=== PATIENT | male | born 1965 | race Caucasian/White ===

== ENCOUNTER 2021-08-22 10:16 | Inpatient (IN) ==
[2021-08-22 11:50] LABS: Basophils # (auto) 0.03 K/uL (0-0.2); Basophils % (auto) 0.3 %; Eosinophils # (auto) 0.12 K/uL (0-0.5); Eosinophils % (auto) 1.2 %; Hematocrit (blood only) 41.2 % (42-52); Hemoglobin 14.7 g/dL (14.0-18.0); Immature Granulocytes # (auto) 0.04 K/uL (0.00-0.02); Immature Granulocytes % (auto) 0.4 %; Lymphocytes # (auto) 1.26 K/uL (1.2-3.4); Lymphocytes % (auto) 12.9 %; Mean Corpuscular Hemoglobin 30.6 pg (25-34); Mean Corpuscular Hgb Conc 35.7 g/dL (32-36); Mean Corpuscular Volume 85.7 fL (80-100); Mean Platelet Volume 8.9 fL (7.4-10.4); Monocytes # (auto) 0.45 K/uL (0.11-0.59); Monocytes % (auto) 4.6 %; Neutrophils # (auto) 7.85 K/uL (1.4-6.5); Neutrophils % (auto) 80.6 %; Platelet Count 190 K/uL (130-400); RDW Coefficient of Variation 12.9 % (11.5-14.5); RDW Standard Deviation 40.3 fL (36.4-46.3); Red Blood Count 4.81 M/uL (4.7-6.1); White Blood Count 9.75 K/uL (4.8-10.8)
--- NOTE | 2021-08-22 12:04 | Emergency Department Note ---
Impression & Plan Abscess of anal or rectal region, Acute hyponatremia, Acute hyperglycemia ED Provider Note NAME: SANTIAGO [id number] GEIB AGE: 56 SEX: M : 1965 ARRIVES VIA: Walk-In INFORMANT: Patient ED PROVIDER(S): Chase Crenshaw DO CHIEF COMPLAINT: Rectal pain HPI: Patient is a 56-year-old male who presents the ER for rectal pain. This has been present for the past week and getting worse. He describes it as a 7-10 out of 10. He denies any belly pain, nausea, vomiting, or diarrhea. No dysuria, urgency, or frequency. He is never had this before. He was seen at the [facility] and referred over for possible abscess. They placed him on antibiotics in the past 24 hours. He denies any other exacerbating or remitting factors other than it is worse with pressure. ROS: See above HPI for pertinent positives & negatives. A total of 10 systems reviewed and were otherwise negative. PAST MEDICAL HISTORY:See Below PAST SURGICAL HISTORY:See Below FAMILY HISTORY:See Below SOCIAL HISTORY:See Below HOME MEDICATIONS:See Below ALLERGIES:See Below VITALS:See Below PHYSICAL EXAMINATION: GENERAL: Sitting up in bed, alert, well appearing, well nourished, no distress, non-toxic EYE EXAM: normal conjunctiva. PERRL and EOM's grossly intact. OROPHARYNX: no exudate, no erythema, lips, buccal mucosa, and tongue normal and mucous membranes are moist NECK: supple, no nuchal rigidity, no adenopathy, non-tender LUNGS: Clear to auscultation. Normal chest wall mechanics HEART: no murmurs, S1 normal and S2 normal ABDOMEN: abdomen soft, non-tender, normo-active bowel sounds, no masses, no rebound or guarding. RECTAL: Firm fluctuant abscess at 7 o'clock position tracking to the anus with fluctuance and small amount of green purulent discharge UPPER EXTREMITIES: upper extremities are grossly normal. LOWER EXTREMITIES: No pitting edema. NEURO EXAM: Normal sensorium, cranial nerves II-XII grossly intact, normal speech, no gross weakness of arms, no gross weakness of legs. MEDICAL DECISION MAKING: Patient is a 56-year-old male who presents ER for rectal pain. On exam he appears to have a perianal abscess. IV was established blood work is obtained. Labs show no significant leukocytosis or anemia. BMP with mild hyponatremia at 133. Glucose was slightly elevated at 290. LFTs bilirubin was unremarkable. Lipase was normal. Covid negative. CT abdomen pelvis supports an abscess with surrounding cellulitis. He was discussed with general surgery and they took him to the OR for washout.Patient was updated bedside.He was given IV Zosyn while in the ER. Triage Nursing notes reviewed. Limited review of prior medical records performed Vital Signs: reviewed and remarkable for no significant abnormalities Differential diagnosis: Differential diagnoses includes but is not limited to gastritis, peptic ulcer disease, GERD, gallbladder disease, pancreatitis, small bowel obstruction, acute coronary syndrome, pericarditis, ischemic bowel, irritable bowel disease, irritable bowel syndrome, appendicitis, diverticulitis, malignancy, hernia, urinary tract infection, torsion, perforation, trauma, infectious. ER treatment provided: See below Diagnostics interpreted by me: ECG: none Cardiac Monitoring: An order was placed for continuous cardiac monitoring. The monitor shows a rate of 60 with sinus rhythm. Laboratory studies: As stated above and show below. Imaging studies: CT shows perianal abscess Consultation(s): Discussed with general surgery for further evaluation Procedures: none Critical Care: None Past Med/Surg History Medical History (Updated 08/22/21 @ 17:36 by Chase Crenshaw DO) Diabetes mellitus Dyslipidemia Hypertension Social History Smoking Status: Former smoker Feels Safe at Home: Yes Allergies Allergies Allergy/AdvReac Type Severity Reaction Status Date / Time mushroom Allergy Unknown Unverified 08/22/21 11:27 Home Meds Home Medications Medication Instructions Recorded Confirmed aspirin 81 mg chewable tablet 81 mg PO DAILY 08/22/21 08/22/21 atorvastatin 10 mg tablet 10 mg PO HS 08/22/21 08/22/21 glyburide 5 mg tablet 10 mg PO BID 08/22/21 08/22/21 ibuprofen 200 mg tablet 600 mg PO Q6H PRN 08/22/21 08/22/21 insulin regular human 100 unit/mL 1 sliding scale dose SUBCUT 08/22/21 08/22/21 (3 mL) subcutaneous pen (Novolin R USEASDIRECTD Flexpen) lisinopril 2.5 mg tablet 2.5 mg PO DAILY 08/22/21 08/22/21 metformin 1,000 mg tablet 1,000 mg PO BID 08/22/21 08/22/21 sulfamethoxazole 800 1 tab PO BID 08/22/21 08/22/21 mg-trimethoprim 160 mg tablet Results & Data (ED) Vital Signs Vital Signs - 24 hr 08/22/21 10:31 08/22/21 11:37 08/22/21 12:39 Temperature 36.5 C Temperature Source Skin Pulse Rate 74 66 63 Pulse Rate [Apical] Pulse Rate from SpO2 Sensor 63 Pulse Rhythm [Apical] Pulse Strength [Apical] Respiratory Rate 18 14 21 Respiratory Effort / Characteristics Respiratory Depth Respiratory Pattern Blood Pressure 130/89 Blood Pressure [Left Arm] Blood Pressure Mean 102 Blood Pressure Mean [Left Arm] Blood Pressure Position [Left Arm] Pulse Oximetry 97 98 96 Oxygen Delivery Method Room Air Room Air Oxygen Flow Rate Sepsis Recent Fever Within 48 Hours No Sepsis New/Unexplained Change in Mental Status No Sepsis Action Taken by Nursing No Action Required 08/22/21 13:03 08/22/21 13:30 08/22/21 14:00 Temperature Temperature Source Pulse Rate 66 66 69 Pulse Rate [Apical] Pulse Rate from SpO2 Sensor 65 65 68 Pulse Rhythm [Apical] Pulse Strength [Apical] Respiratory Rate 14 23 12 Respiratory Effort / Characteristics Respiratory Depth Respiratory Pattern Blood Pressure 141/75 H Blood Pressure [Left Arm] Blood Pressure Mean 97 Blood Pressure Mean [Left Arm] Blood Pressure Position [Left Arm] Pulse Oximetry 99 98 98 Oxygen Delivery Method Oxygen Flow Rate Sepsis Recent Fever Within 48 Hours Sepsis New/Unexplained Change in Mental Status Sepsis Action Taken by Nursing 08/22/21 14:30 08/22/21 15:00 08/22/21 15:27 Temperature 36.8 C Temperature Source Oral Pulse Rate 65 63 Pulse Rate [Apical] Pulse Rate from SpO2 Sensor 65 64 Pulse Rhythm [Apical] Pulse Strength [Apical] Respiratory Rate 24 21 18 Respiratory Effort / Characteristics Non-Labored Respiratory Depth Normal Respiratory Pattern Regular Blood Pressure Blood Pressure [Left Arm] 148/80 H Blood Pressure Mean Blood Pressure Mean [Left Arm] 102 Blood Pressure Position [Left Arm] Lying Pulse Oximetry 97 96 98 Oxygen Delivery Method Room Air Oxygen Flow Rate Sepsis Recent Fever Within 48 Hours Sepsis New/Unexplained Change in Mental Status Sepsis Action Taken by Nursing 08/22/21 16:39 08/22/21 16:45 08/22/21 16:55 Temperature 36.2 C L Temperature Source Temporal Artery Scan Pulse Rate Pulse Rate [Apical] 73 71 62 Pulse Rate from SpO2 Sensor Pulse Rhythm [Apical] Regular Regular Regular Pulse Strength [Apical] Normal Normal Normal Respiratory Rate 12 19 21 Respiratory Effort / Characteristics Non-Labored Spontaneous Non-Labored Spontaneous Non-Labored Spontaneous Respiratory Depth Normal Normal Normal Respiratory Pattern Regular Regular Regular Blood Pressure Blood Pressure [Left Arm] 162/77 H 150/82 H 133/81 Blood Pressure Mean Blood Pressure Mean [Left Arm] 105 104 98 Blood Pressure Position [Left Arm] Lying Lying Lying Pulse Oximetry 96 98 97 Oxygen Delivery Method Oxymask Oxymask Oxymask Oxygen Flow Rate 6 6 6 Sepsis Recent Fever Within 48 Hours Sepsis New/Unexplained Change in Mental Status Sepsis Action Taken by Nursing 08/22/21 17:05 08/22/21 17:15 08/22/21 17:30 Temperature 36.3 C L Temperature Source Temporal Artery Scan Pulse Rate Pulse Rate [Apical] 59 L 59 L 58 L Pulse Rate from SpO2 Sensor Pulse Rhythm [Apical] Regular Regular Regular Pulse Strength [Apical] Normal Normal Normal Respiratory Rate 17 16 12 Respiratory Effort / Characteristics Non-Labored Spontaneous Non-Labored Spontaneous Non-Labored Spontaneous Respiratory Depth Normal Normal Normal Respiratory Pattern Regular Regular Regular Blood Pressure Blood Pressure [Left Arm] 126/75 119/69 110/68 Blood Pressure Mean Blood Pressure Mean [Left Arm] 92 85 82 Blood Pressure Position [Left Arm] Lying Lying Lying Pulse Oximetry 95 95 94 Oxygen Delivery Method Room Air Room Air Room Air Oxygen Flow Rate Sepsis Recent Fever Within 48 Hours Sepsis New/Unexplained Change in Mental Status Sepsis Action Taken by Nursing Laboratory Data Result diagrams: 08/22/21 11:40 08/22/21 11:40 Lab Results 08/22/21 08/22/21 08/22/21 Range/Units 11:40 11:40 14:25 WBC 9.75 (4.8-10.8) K/uL RBC 4.81 (4.7-6.1) M/uL Hgb 14.7 (14.0-18.0) g/dL Hct 41.2 L (42-52) % MCV 85.7 (80-100) fL MCH 30.6 (25-34) pg MCHC 35.7 (32-36) g/dL RDW Std Deviation 40.3 (36.4-46.3) fL RDW Coeff of Anh 12.9 (11.5-14.5) % Plt Count 190 (130-400) K/uL MPV 8.9 (7.4-10.4) fL Immature Gran % (Auto) 0.4 % Neut % (Auto) 80.6 % Lymph % (Auto) 12.9 % Preston % (Auto) 4.6 % Eos % (Auto) 1.2 % Baso % (Auto) 0.3 % Neut # (Auto) 7.85 H (1.4-6.5) K/uL Lymph # (Auto) 1.26 (1.2-3.4) K/uL Preston # (Auto) 0.45 (0.11-0.59) K/uL Eos # (Auto) 0.12 (0-0.5) K/uL Baso # (Auto) 0.03 (0-0.2) K/uL Immature Gran # (Auto) 0.04 H (0.00-0.02) K/uL Sodium 133 L (136-145) mmol/L Potassium 4.3 (3.5-5.1) mmol/L Chloride 102 (98-107) mmol/L Carbon Dioxide 23 (21-32) mmol/L Anion Gap 8.0 (3-11) BUN 17 (7-18) mg/dl Creatinine 1.07 (0.6-1.4) mg/dl Est Cr Clr Drug Dosing 82.7 ml/min Est GFR ( Amer) 88.8 ml/min Est GFR (Non-Af Amer) 76.7 ml/min BUN/Creatinine Ratio 15.9 (10-20) Glucose 298 H (70-99) mg/dl POC Glucose (70-99) mg/dl Calcium 9.7 (8.5-10.1) mg/dl Total Bilirubin 0.6 (0.2-1) mg/dl AST 10 L (15-37) U/L ALT 16 (12-78) U/L Alkaline Phosphatase 115 (45-117) U/L Total Protein 8.3 H (6.4-8.2) gm/dl Albumin 3.5 (3.4-5.0) gm/dl Globulin 4.8 H (2.5-4.0) gm/dl Albumin/Globulin Ratio 0.7 L (0.9-2) Lipase 57 L (73-393) U/L COVID-19 Eval Order Covid19 at [facility] SARS-CoV-2 (PCR) (Negative) 08/22/21 08/22/21 Range/Units 14:25 16:41 WBC (4.8-10.8) K/uL RBC (4.7-6.1) M/uL Hgb (14.0-18.0) g/dL Hct (42-52) % MCV (80-100) fL MCH (25-34) pg MCHC (32-36) g/dL RDW Std Deviation (36.4-46.3) fL RDW Coeff of Anh (11.5-14.5) % Plt Count (130-400) K/uL MPV (7.4-10.4) fL Immature Gran % (Auto) % Neut % (Auto) % Lymph % (Auto) % Preston % (Auto) % Eos % (Auto) % Baso % (Auto) % Neut # (Auto) (1.4-6.5) K/uL Lymph # (Auto) (1.2-3.4) K/uL Preston # (Auto) (0.11-0.59) K/uL Eos # (Auto) (0-0.5) K/uL Baso # (Auto) (0-0.2) K/uL Immature Gran # (Auto) (0.00-0.02) K/uL Sodium (136-145) mmol/L Potassium (3.5-5.1) mmol/L Chloride (98-107) mmol/L Carbon Dioxide (21-32) mmol/L Anion Gap (3-11) BUN (7-18) mg/dl Creatinine (0.6-1.4) mg/dl Est Cr Clr Drug Dosing ml/min Est GFR ( Amer) ml/min Est GFR (Non-Af Amer) ml/min BUN/Creatinine Ratio (10-20) Glucose (70-99) mg/dl POC Glucose 255 H (70-99) mg/dl Calcium (8.5-10.1) mg/dl Total Bilirubin (0.2-1) mg/dl AST (15-37) U/L ALT (12-78) U/L Alkaline Phosphatase (45-117) U/L Total Protein (6.4-8.2) gm/dl Albumin (3.4-5.0) gm/dl Globulin (2.5-4.0) gm/dl Albumin/Globulin Ratio (0.9-2) Lipase (73-393) U/L COVID-19 Eval Order SARS-CoV-2 (PCR) NEGATIVE (Negative) Administered Medications Discontinued Medications Bacitracin (Bacitracin Oint 15 Gm Tube) Confirm Administered Dose 45 appln .ROUTE .STK-MED ONE Stop: 08/22/21 16:25 Last Admin: 08/22/21 16:27 Dose: 1 appln Documented by: [id number] Piperacillin Sod/Tazobactam (Sod 3.375 gm/ Dextrose) 100 ml in 115 mls @ 230 mls/hr IV NOW STA Stop: 08/22/21 15:28 Last Infusion: 08/22/21 15:40 Dose: 0 mls/hr Documented by: [id number] Admin: 08/22/21 15:07 Dose: 230 mls/hr Documented by: [id number] Ioversol (Optiray 320 100ml) 95 ml IV ONCE ONE Stop: 08/22/21 13:04 Last Admin: 08/22/21 12:57 Dose: 95 ml Documented by: [id number] Imaging Data Radiologist's Impression: Abdomen/Pelvis CT 08/22/21 12:02 CT SCAN OF THE ABDOMEN AND PELVIS WITH IV CONTRAST CLINICAL HISTORY: Perianal abscess COMPARISON STUDY: No priors. TECHNIQUE: Following the IV administration of 95 cc of Optiray 320, CT scan of the abdomen and pelvis is performed from the lung bases to the proximal femora. Images are reviewed in the axial, sagittal, and coronal planes. IV contrast was administered without complication. A dose lowering technique was utilized adhering to the principles of ALARA. CT DOSE: 357.78 mGy.cm FINDINGS: Lung bases: The heart is normal in size and without pericardial effusion. The lung bases are clear noting mild bibasilar scarring/atelectasis. Liver: The contrast-enhanced liver is normal in size, contour, and attenuation. There is no intrahepatic biliary ductal dilatation. The hepatic veins and portal veins are patent. Gallbladder: Unremarkable. Spleen: The spleen is mildly enlarged measuring up to 13.8 cm in length. Pancreas: Unremarkable. Adrenal glands: Unremarkable. Kidneys: The contrast enhanced kidneys are normal in size and without hydronephrosis. The kidneys enhance symmetrically. Abdominal vasculature: The abdominal aorta is normal in course and caliber noting moderate to advanced atherosclerotic calcification. 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 Bowel: There is moderate colonic fecal retention. No bowel obstruction is seen. The appendix is well-visualized and normal. Peritoneum: There is no intraperitoneal free air or abdominal ascites. There is a fat-containing umbilical hernia. Lymphadenopathy: None. Pelvic viscera: The prostate gland is enlarged and heterogeneous noting median lobe hypertrophy. The bladder is distended, and the wall is thickened/trabeculated indicating chronic outlet obstruction. Skeletal structures: No lytic or blastic lesions are seen. Soft tissues: There is inflammatory process in the medial right buttock along the gluteal crease. This is best seen on axial image #40 and 69. There is a multiloculated and peripherally enhancing fluid collection at this site which measures approximately 2 x 3.5 x 2 cm in aggregate dimension. This is located below the anus, with no clear perianal involvement. There is no definite e vidence of fistula. IMPRESSION: 1. There is an inflammatory process in the medial right buttock along the gluteal crease consistent with cellulitis and abscess. 2. There is no clear involvement of the perianal soft tissues, and no clear evidence of fistula. 3. Mild splenomegaly. 4. 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 5. Additional findings as above. ACT 112: Negative or not required by law. Electronically signed by: Gilberto Sanchez M.D. 08/22/2021 1:23 PM Discharge Plan Visit Data Chief Complaint: Skin Problem Stated Complaint: NIKKI-RECTAL ABSCESS ED Provider: Chase Crenshaw Discharge Problem: Abscess of anal or rectal region, Acute hyponatremia, Acute hyperglycemia
[2021-08-22 12:07] LABS: Albumin Level 3.5 gm/dl (3.4-5.0); BUN Creatinine Ratio 15.9 (10-20); Calcium 9.7 mg/dl (8.5-10.1); Creatinine Clr Calc Pharmacy 82.7 ml/min; Est GFR (African American) 88.8 ml/min; Est GFR (Non-African American) 76.7 ml/min; Potassium 4.3 mmol/L (3.5-5.1)
[2021-08-22 12:09] LABS: Albumin Globulin Ratio 0.7 (0.9-2); Bilirubin,Total 0.6 mg/dl (0.2-1); Globulin 4.8 gm/dl (2.5-4.0); Total Protein 8.3 gm/dl (6.4-8.2)
[2021-08-22] MEDS ORDERED: OPTIRAY 320 100ml IV ONE (13:03)
--- NOTE | 2021-08-22 13:25 | CT Scan Report ---
CT SCAN OF THE ABDOMEN AND PELVIS WITH IV CONTRAST CLINICAL HISTORY: Perianal abscess COMPARISON STUDY: No priors. TECHNIQUE: Following the IV administration of 95 cc of Optiray 320, CT scan of the abdomen and pelvi s is performed from the lung bases to the proximal femora. Images are reviewed in the axial, sagittal , and coronal planes. IV contrast was administered without complication. A dose lowering technique wa s utilized adhering to the principles of ALARA. CT DOSE: 357.78 mGy.cm FINDINGS: Lung bases: The heart is normal in size and without pericardial effusion. The lung bases are clear no ting mild bibasilar scarring/atelectasis. Liver: The contrast-enhanced liver is normal in size, contour, and attenuation. There is no intrahepa tic biliary ductal dilatation. The hepatic veins and portal veins are patent. Gallbladder: Unremarkable. Spleen: The spleen is mildly enlarged measuring up to 13.8 cm in length. Pancreas: Unremarkable. Adrenal glands: Unremarkable. Kidneys: The contrast enhanced kidneys are normal in size and without hydronephrosis. The kidneys enh ance symmetrically. Abdominal vasculature: The abdominal aorta is normal in course and caliber noting moderate to advance d atherosclerotic calcification. There is at least moderate stenosis of the right external iliac narayan ry. Bowel: There is moderate colonic fecal retention. No bowel obstruction is seen. The appendix is well -visualized and normal. Peritoneum: There is no intraperitoneal free air or abdominal ascites. There is a fat-containing umbi lical hernia. Lymphadenopathy: None. Pelvic viscera: The prostate gland is enlarged and heterogeneous noting median lobe hypertrophy. The bladder is distended, and the wall is thickened/trabeculated indicating chronic outlet obstruction. Skeletal structures: No lytic or blastic lesions are seen. Soft tissues: There is inflammatory process in the medial right buttock along the gluteal crease. Thi s is best seen on axial image #40 and 69. There is a multiloculated and peripherally enhancing fluid collection at this site which measures approximately 2 x 3.5 x 2 cm in aggregate dimension. This is l ocated below the anus, with no clear perianal involvement. There is no definite evidence of fistula. IMPRESSION: 1. There is an inflammatory process in the medial right buttock along the gluteal crease consistent w ith cellulitis and abscess. 2. There is no clear involvement of the perianal soft tissues, and no clear evidence of fistula. 3. Mild splenomegaly. 4. 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 5. Additional findings as above. ACT 112: Negative or not required by law. Electronically signed by: Gilberto Sanchez M.D. 08/22/2021 1:23 PM
[2021-08-22] MEDS ORDERED: PIPERACILL/TAZOBAC CONSULT ACTIVE PRN ×3 (14:07→18:04)
[2021-08-22] MEDS ORDERED: PIPERACILLIN/TAZOBACTAM 4.5 GM/120ML D5W IV ONE (14:11)
[2021-08-22] MEDS ORDERED: PIPERACILLIN/TAZOBACTAM 3.375 GM in DEXTROSE 5% 100 ML/100 ML BAG IV STA (14:59)
[2021-08-22] MEDS ORDERED: PIPERACILLIN/TAZOBACTAM 4.5 GM/120 ML BAG IV ONE (15:29)
--- NOTE | 2021-08-22 15:47 | Surgery Consultation ---
Date of Consultation August 22, 2021 Assessment & Plan (1) Abscess of anal or rectal region: pt is a 56 year-old male who presents with rectal pain for 1 week, CT scan- diagnosis- perirectal abscess IMP: perirectal abscess, Plan, I recommend to do I/D perirectal abscess, D/w benefits, risks and alternatives of the surgery, the risks - infection, bleeding, recurrence, fistula, may need more surgery, pt understood, he agrees with the surgery, he signed informed consent, I answered all questions,pre-op antibiotic History of Present Illness Reason for Consultation: perirectal abscess Requesting Physician: Dr. Chase Crenshaw History of Present Illness CHIEF COMPLAINT: Rectal pain HPI: Patient is a 56-year-old male who presents the ER for rectal pain. This been present for the past week and getting worse. He describes it as a 7-10 out of 10. He denies any belly pain nausea vomiting or diarrhea. No dysuria urgency or frequency. He is never had this before. He was seen at the long term and referred over for possible abscess. They placed him on antibiotics in the past 24 hours. He denies any other exacerbating or remitting factors other than it is worse with pressure. I ( Primitivo Collins MD ) got a call for consult perirectal abscess, I reviewed pt's H/P, labs, CT scan with pt, ROS: See above HPI for pertinent positives & negatives. A total of 10 systems reviewed and were otherwise negative. PAST MEDICAL HISTORY:See Below PAST SURGICAL HISTORY:See Below FAMILY HISTORY:See Below SOCIAL HISTORY:See Below HOME MEDICATIONS:See Below ALLERGIES:See Below Past Med/Surg History Social History Smoking Status: Former smoker Feels Safe at Home: Yes Allergies Allergies Allergy/AdvReac Type Severity Reaction Status Date / Time mushroom Allergy Unknown Unverified 08/22/21 11:27 Home Meds Home Medications Medication Instructions Recorded Confirmed aspirin 81 mg chewable tablet 81 mg PO DAILY 08/22/21 08/22/21 atorvastatin 10 mg tablet 10 mg PO HS 08/22/21 08/22/21 glyburide 5 mg tablet 10 mg PO BID 08/22/21 08/22/21 ibuprofen 200 mg tablet 600 mg PO Q6H PRN 08/22/21 08/22/21 insulin regular human 100 unit/mL 1 sliding scale dose SUBCUT 08/22/21 08/22/21 (3 mL) subcutaneous pen (Novolin R USEAS DIRECTD Flexpen) lisinopril 2.5 mg tablet 2.5 mg PO DAILY 08/22/21 08/22/21 metformin 1,000 mg tablet 1,000 mg PO BID 08/22/21 08/22/21 sulfamethoxazole 800 1 tab PO BID 08/22/21 08/22/21 F mg-trimethoprim 160 mg tablet Results & Data (ED) Vital Signs Vital Signs - 24 hr 08/22/21 10:31 08/22/21 11:37 Temperature 36.5 C Temperature Source Skin Pulse Rate 74 66 Respiratory Rate 18 14 Blood Pressure 130/89 Blood Pressure Mean 102 Pulse Oximetry 97 98 Oxygen Delivery Method Room Air Room Air Sepsis Recent Fever Within 48 Hours No Sepsis New/Unexplained Change in Mental Status No Sepsis Action Taken by Nursing No Action Required Laboratory Data Result diagrams: 08/22/21 11:40 08/22/21 11:40 Lab Results 08/22/21 Range/Units 11:40 WBC 9.75 (4.8-10.8) K/uL RBC 4.81 (4.7-6.1) M/uL Hgb 14.7 (14.0-18.0) g/dL Hct 41.2 L (42-52) % MCV 85.7 (80-100) fL MCH 30.6 (25-34) pg MCHC 35.7 (32-36) g/dL RDW Std Deviation 40.3 (36.4-46.3) fL RDW Coeff of Anh 12.9 (11.5-14.5) % Plt Count 190 (130-400) K/uL MPV 8.9 (7.4-10.4) fL Immature Gran % (Auto) 0.4 % Neut % (Auto) 80.6 % Lymph % (Auto) 12.9 % Reeves % (Auto) 4.6 % Eos % (Auto) 1.2 % Baso % (Auto) 0.3 % Neut # (Auto) 7.85 H (1.4-6.5) K/uL Lymph # (Auto) 1.26 (1.2-3.4) K/uL Reeves # (Auto) 0.45 (0.11-0.59) K/uL Eos # (Auto) 0.12 (0-0.5) K/uL Baso # (Auto) 0.03 (0-0.2) K/uL Immature Gran # (Auto) 0.04 H (0.00-0.02) K/uL Allergies Allergy/AdvReac Type Severity Reaction Status Date / Time mushroom Allergy Unknown Unverified 08/22/21 11:27 Home Medications Medication Instructions Recorded Confirmed Type aspirin 81 mg chewable tablet 81 mg PO DAILY 08/22/21 08/22/21 History atorvastatin 10 mg tablet 10 mg PO HS 08/22/21 08/22/21 History glyburide 5 mg tablet 10 mg PO BID 08/22/21 08/22/21 History ibuprofen 200 mg tablet 600 mg PO Q6H PRN 08/22/21 08/22/21 History insulin regular human 100 unit/mL 1 sliding scale dose SUBCUT 08/22/21 08/22/21 History (3 mL) subcutaneous pen (Novolin R USEASDIRECTD Flexpen) lisinopril 2.5 mg tablet 2.5 mg PO DAILY 08/22/21 08/22/21 History metformin 1,000 mg tablet 1,000 mg PO BID 08/22/21 08/22/21 History sulfamethoxazole 800 1 tab PO BID 08/22/21 08/22/21 History mg-trimethoprim 160 mg tablet Patient History Medical History (Updated 08/22/21 @ 15:49 by Primitivo Collins MD) Diabetes mellitus Dyslipidemia Hypertension Social History Smoking Status: Former smoker Feels Safe at Home: Yes Review of Systems Constitutional: as per Subjective / HPI Eyes: as per Subjective / HPI Respiratory: as per Subjective / HPI Cardiovascular: Additional Comments: HTN, hyperlipidemia Gastrointestinal: as per Subjective / HPI Genitourinary: + as per Subjective / HPI Musculoskeletal: as per Subjective / HPI Integumentary: as per Subjective / HPI Neurologic: as per Subjective / HPI Psychiatric: as per Subjective / HPI Endocrine: DM Hematologic / Lymphatic: as per Subjective / HPI Physical Exam Constitutional: WD/WN, vitals as above Eyes: PERRL, conjunctivae normal, anicteric sclerae Neck: trachea midline, no thyromegaly Respiratory: normal respiratory effort, lungs clear to auscultation Cardiovascular: RRR, no murmur, no edema Gastrointestinal (Abdomen): normal bowel sounds, soft, nontender, no hepatosplenomegaly rectal exam: perirectal abscess at right side anal area, with redness, tenderness, Musculoskeletal: no cyanosis or clubbing, extremities motor strength 5/5 Neurologic: patellar DTR's 2+ bilat, sensation intact Psychiatric: A+Ox3, euthymic affect Results & Data ([facility]) Vital Signs (Past 12 Hours) Vital Signs Temp Pulse Resp BP BP Pulse Ox 08/22/21 15:27 36.8 C 18 148/80 H 98 08/22/21 15:00 63 21 96 08/22/21 14:30 65 24 97 08/22/21 14:00 69 12 98 08/22/21 13:30 66 23 98 08/22/21 13:03 66 14 141/75 H 99 08/22/21 12:39 63 21 96 08/22/21 11:37 66 14 98 08/22/21 10:31 36.5 C 74 18 130/89 97 Laboratory Results Abnormal lab results 08/22/21 08/22/21 Range/Units 11:40 11:40 Hct 41.2 L (42-52) % Neut # (Auto) 7.85 H (1.4-6.5) K/uL Immature Gran # (Auto) 0.04 H (0.00-0.02) K/uL Sodium 133 L (136-145) mmol/L Glucose 298 H (70-99) mg/dl AST 10 L (15-37) U/L Total Protein 8.3 H (6.4-8.2) gm/dl Globulin 4.8 H (2.5-4.0) gm/dl Albumin/Globulin Ratio 0.7 L (0.9-2) Lipase 57 L (73-393) U/L Diagnostic Findings CT SCAN OF THE ABDOMEN AND PELVIS WITH IV CONTRAST CLINICAL HISTORY: Perianal abscess COMPARISON STUDY: No priors. TECHNIQUE: Following the IV administration of 95 cc of Optiray 320, CT scan of the abdomen and pelvis is performed from the lung bases to the proximal femora. Images are reviewed in the axial, sagittal, and coronal planes. IV contrast was administered without complication. A dose lowering technique was utilized adhering to the principles of ALARA. CT DOSE: 357.78 mGy.cm FINDINGS: Lung bases: The heart is normal in size and without pericardial effusion. The lung bases are clear noting mild bibasilar scarring/atelectasis. Liver: The contrast-enhanced liver is normal in size, contour, and attenuation. There is no intrahepatic biliary ductal dilatation. The hepatic veins and portal veins are patent. Gallbladder: Unremarkable. Spleen: The spleen is mildly enlarged measuring up to 13.8 cm in length. Pancreas: Unremarkable. Adrenal glands: Unremarkable. Kidneys: The contrast enhanced kidneys are normal in size and without hydronephrosis. The kidneys enhance symmetrically. Abdominal vasculature: The abdominal aorta is normal in course and caliber noting moderate to advanced atherosclerotic calcification. 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 Bowel: There is moderate colonic fecal retention. No bowel obstruction is seen. The appendix is well-visualized and normal. Peritoneum: There is no intraperitoneal free air or abdominal ascites. There is a fat-containing umbilical hernia. Lymphadenopathy: None. Pelvic viscera: The prostate gland is enlarged and heterogeneous noting median lobe hypertrophy. The bladder is distended, and the wall is thickened/trabeculated indicating chronic outlet obstruction. Skeletal structures: No lytic or blastic lesions are seen. Soft tissues: There is inflammatory process in the medial right buttock along the gluteal crease. This is best seen on axial image #40 and 69. There is a multiloculated and peripherally enhancing fluid collection at this site which measures approximately 2 x 3.5 x 2 cm in aggregate dimension. This is located below the anus, with no clear perianal involvement. There is no definite evidence of fistula. IMPRESSION: 1. There is an inflammatory process in the medial right buttock along the gluteal crease consistent with cellulitis and abscess. 2. There is no clear involvement of the perianal soft tissues, and no clear evidence of fistula. 3. Mild splenomegaly. 4. 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 5. Additional findings as above.
[2021-08-22] MEDS ORDERED: fentaNYL citrate 100 MCG/2 ML VIAL ONE ×2 (15:50→16:21)
[2021-08-22] MEDS ORDERED: ONDANSETRON INJ 2 MG/ML 2 ML VIAL ONE (15:52)
[2021-08-22] MEDS ORDERED: ONDANSETRON INJ 2 MG/ML 2 ML VIAL IV PRN (15:52)
[2021-08-22] MEDS ORDERED: fentaNYL citrate 100 MCG/2 ML VIAL IV PRN (15:52)
[2021-08-22] MEDS ORDERED: HYDROmorphone INJ 2 MG/ML SYR/VIAL IV PRN (15:52)
[2021-08-22] MEDS ORDERED: ATROPINE SULFATE 0.1 MG/ML 10ML SYR IV PRN (15:52)
[2021-08-22] MEDS ORDERED: PROPOFOL IV EMULSION 10 MG/ML 20 ML VIAL IV ONE (15:52)
[2021-08-22] MEDS ORDERED: LIDOCAINE 2% 2 ML VIAL/AMP(20MG/ML) INFIL ONE (15:52)
[2021-08-22] MEDS ORDERED: ePHEDrine sulfate 50 MG/ML AMP IV PRN (15:52)
--- NOTE | 2021-08-22 15:52 | Anesthesiology Consultation ---
Date of Service August 22, 2021 Assessment & Plan ASA ASA3 Proposed Anesthesia Anesthesia Type: General Risk / Benefits Reviewed With: PT / POA / Parent / Guardian, Accepts Plan and Informed Consent Obtained History Surgery Operation Date: 08/22/21 17:20 Proposed Procedures p Incision and Drainage Gluteal Abscess - Primitivo Collins MD Height/Weight Height: 6 ft Weight: 76.8 kg Allergies Allergy/AdvReac Type Severity Reaction Status Date / Time mushroom Allergy Unknown Unverified 08/22/21 11:27 Medications Home Medications Medication Instructions Recorded Confirmed Last Taken aspirin 81 mg chewable tablet 81 mg PO DAILY 08/22/21 08/22/21 Unknown atorvastatin 10 mg tablet 10 mg PO HS 08/22/21 08/22/21 Unknown glyburide 5 mg tablet 10 mg PO BID 08/22/21 08/22/21 Unknown ibuprofen 200 mg tablet 600 mg PO Q6H PRN 08/22/21 08/22/21 Unknown insulin regular human 100 unit/mL 1 sliding scale dose SUBCUT 08/22/21 08/22/21 Unknown (3 mL) subcutaneous pen (Novolin R USEASDIRECTD Flexpen) lisinopril 2.5 mg tablet 2.5 mg PO DAILY 08/22/21 08/22/21 Unknown metformin 1,000 mg tablet 1,000 mg PO BID 08/22/21 08/22/21 Unknown sulfamethoxazole 800 1 tab PO BID 08/22/21 08/22/21 Unknown mg-trimethoprim 160 mg tablet NPO Date Last Intake of Fluids: 08/21/21 Time Last Intake of Fluids: 19:00 Date Last Intake of Solids: 08/22/21 Time Last Intake of Solids: 07:15 Past Medical History Medical History (Updated 08/22/21 @ 15:49 by Primitivo Collins MD) Diabetes mellitus Dyslipidemia Hypertension Exercise / Class Metabolic Activity II 4-5 Yardwork/Stairs/Walk up hill Past Anesthesia History No Hx of Anesthesia Complications and No Family Hx of Anesthesia Complications History of PONV No Hx of PONV and No Hx of Motion Sickness Social History Smoking Status: Former smoker Review of Systems denies fever/cough/ colds/ chest pain/ SOB/ RODGER denies RODGER Physical Exam Vital Signs Last Vital Signs Temp 36.8 C 08/22/21 15:27 Pulse 63 08/22/21 15:00 Resp 18 08/22/21 15:27 BP 148/80 H 08/22/21 15:27 Pulse Ox 98 08/22/21 15:27 ENMT Mouth: + edentulous; no TMJ abnormality and no dentition abnormality Thyromental Distance: > or= 3.5 Finger Breadths Mallampati Class: II Neck neck extension not limited Respiratory normal respiratory effort; no respiratory distress Auscultation: lungs clear to auscultation bilaterally Cardiovascular Rate/Rhythm: regular rate and regular rhythm Neurologic moves all extremities Psychiatric Orientation: alert and oriented x 3 Testing Laboratory Results 08/22/21 11:40 08/22/21 11:40
--- NOTE | 2021-08-22 15:54 | History & Physical Bridge Note ---
Date of Service August 22, 2021 History & Physical Bridge Note I have examined the patient, reviewed the History & Physical and in the interval since the performance of the History & Physical I have noted the following changes of clinical significance: no changes noted
[2021-08-22] MEDS ORDERED: BACITRACIN OINT 15 GM TUBE ONE (16:24)
--- NOTE | 2021-08-22 16:29 | Post Operative Brief Note ---
Immediate Post Op Note v1 Date of Surgery August 22, 2021 Pre & Post Diagnosis Operation Date: 08/22/21 17:20 Pre-Op Diagnosis: perirectal abscess Post-Op Diagnosis: perirectal abscess I identified the patient and participated in the time-out.: Yes Procedure Operation Date: 08/22/21 17:20 Actual Procedures p Incision and Drainage perirectal Abscess(Not Applicable) - Primitivo Collins MD Surgeon Primitivo Collins MD Ict Help Desk Technician medical or surgical instrument maker Estimated Blood Loss 5 Findings Consistent with Post-Op Diagnosis perirectal abscess Fluids 600ml Specimens wound culture Drains Patricio Drain (portion of patricio ) Complications none Disposition Accompanied Patient To Recovery: Yes
[2021-08-22] MEDS ORDERED: oxyCODONE/ACETAMINOPHEN 5mg/325mg TAB PO STA (16:37)
[2021-08-22] MEDS ORDERED: PHARMACY GLYCEMIC MGMT CONSULT PRN (17:24)
--- NOTE | 2021-08-22 17:28 | Anesthesiology Progress Note ---
Date of Service August 22, 2021 Anesthesia Post Procedure Vital Signs Vital Signs: Temp Pulse Pulse Resp BP BP Pulse Ox 08/22/21 17:15 36.3 C L 59 L 16 119/69 95 08/22/21 17:05 59 L 17 126/75 95 08/22/21 16:55 62 21 133/81 97 08/22/21 16:45 71 19 150/82 H 98 08/22/21 16:39 36.2 C L 73 12 162/77 H 96 08/22/21 15:27 36.8 C 18 148/80 H 98 08/22/21 15:00 63 21 96 08/22/21 14:30 65 24 97 08/22/21 14:00 69 12 98 08/22/21 13:30 66 23 98 08/22/21 13:03 66 14 141/75 H 99 08/22/21 12:39 63 21 96 08/22/21 11:37 66 14 98 08/22/21 10:31 36.5 C 74 18 130/89 97 Pain Intensity Rectal: Pain Intensity: 2 Transfer of Care Handoff Completed per policy Notes Mental Status: alert / awake / arousable Patient Amnestic to Procedure: Yes Nausea / Vomiting: adequately controlled Pain: adequately controlled Airway Patency, RR, SpO2: stable & adequate BP & HR: stable & adequate Hydration State: stable & adequate Anesthetic Complications: no major complications apparent and Pt Satisfied with anesthetic care Notes: The patient is awake and comfortable. Postop BSG was 255. Pharmacy was consulted to manage his hyperglycemia.
[2021-08-22] MEDS ORDERED: HYDROmorphone INJ 0.5 MG/0.5 ML SYR IV PRN (18:04)
[2021-08-22] MEDS ORDERED: NON-FORMULARY MEDICATION (Insulin Regular Human [Novolin R Flexpen] 100 unit/mL (3 mL) Ins SQ SCH (18:04)
[2021-08-22] MEDS ORDERED: IBUPROFEN 600 MG TAB PO PRN (18:04)
[2021-08-22] MEDS ORDERED: INSULIN ASPART 100 UNITS/ML 3 ML PEN SC STA (19:02)
[2021-08-22] MEDS ORDERED: GLUCOSE 10 TABS/TUBE PO PRN (19:30)
[2021-08-22] MEDS ORDERED: GLUCOSE 40% GEL 15 GM TUBE PO PRN (19:30)
[2021-08-22] MEDS ORDERED: CARBOHYDRATES FOR HYPOGLYCEMIA PO PRN (19:30)
[2021-08-22] MEDS ORDERED: GLUCAGON FOR INJ 1 MG VIAL IM PRN (19:30)
[2021-08-22] MEDS ORDERED: DEXTROSE 50% 50 ML SYRINGE IV PRN (19:30)
[2021-08-22] MEDS ORDERED: INSULIN GLARGINE SOLOSTAR 100 UNITS/ML 3 ML PEN SC SCH (21:00)
[2021-08-22] MEDS ORDERED: metFORMIN HCL 500 MG TAB PO SCH (21:00)
[2021-08-22] MEDS ORDERED: SULFAMETHOXAZOLE/TRIMETHOPRIM DS 800/160MG TAB PO SCH (21:00)
[2021-08-22] MEDS ORDERED: glyBURIDE 5 MG TAB PO SCH (21:00)
[2021-08-22] MEDS: PIPERACILLIN/TAZOBACTAM 3.375 GM in DEXTROSE 5% 100 ML IV SCH (21:17)
[2021-08-22] MEDS: ATORVASTATIN 10 MG TAB PO SCH (21:19)
[2021-08-22] MEDS: INSULIN ASPART 100 UNITS/ML 3 ML PEN SC SCH (21:25)
[2021-08-22] MEDS ORDERED: oxyCODONE/ACETAMINOPHEN 5mg/325mg TAB PO PRN (23:00)
[2021-08-23] MEDS: INSULIN ASPART 100 UNITS/ML 3 ML PEN SC SCH ×6 (00:20→21:20)
[2021-08-23] MEDS: LACTATED RINGER'S 1,000 ML IV SCH ×2 (00:20→11:20)
--- NOTE | 2021-08-23 00:49 | Operative Report (OR) ---
DATE OF SERVICE: 08/22/2021 PREOPERATIVE DIAGNOSIS: Perirectal abscess. POSTOPERATIVE DIAGNOSIS: Perirectal abscess. OPERATION: Incision and drainage of perirectal abscess. SURGEON: Primitivo Collins MD. ANESTHESIA: General. ESTIMATED BLOOD LOSS: About 5 mL. FINDINGS: Perirectal abscess. COMPLICATIONS: None. Wound cultures sent. INDICATIONS FOR THE PROCEDURE: This is a 56-year-old gentleman who presented with 7 days of perirect al pain and the patient had a CT scan diagnosis of perirectal abscess. I recommended to do the incis ion and drainage of perirectal abscess. I did talk to the patient about the benefit, risk, alternate procedure. I indicated the risks may include, but not limited to, such as bleeding, infection, recu rrence, may need more procedure or fistula. The patient understands. He signed informed consent and I answered all questions. DETAILS OF PROCEDURE: After we identified the patient and verified the procedure, we brought the pat ient to the OR, put the patient in the supine position on the OR table. The patient received SCD on bilateral legs to prevent DVT. Also, patient received 3.375 grams Zosyn IV for prophylactic antibiot ic. The patient received general anesthesia without difficulty. Then, we put the patient in lithoto my position on the OR table. The rectal area was prepped and draped in routine sterile fashion after timeout, then we found the patient had on the right side a perirectal abscess. The abscess has sign ificant bulging with redness. I used a 15 blade to open the abscess about 1.5 cm. There was pus cristhian t came out immediately. We sent a wound culture. We cleaned the pus and used normal saline to wash the abscess cavity. Hemostasis was obtained. I put a 1/4-inch Bo drainage in the cavity and I used 2-0 nylon to fix the [place] drainage on the skin x2 suture. Then, we used a half-inch Kerlix f or packing the incision. Hemostasis was obtained. Then, we put the dressing on. The patient tolera sara the procedure well. All instrument, needle and sponge counts were correct x2 at the end of the c ase. The patient was transferred to recovery room in stable condition. Wound cultures were sent for culture. Job ID: [id number]
--- NOTE | 2021-08-23 01:12 | Consultation Report ---
DATE OF CONSULTATION: 08/22/2021. CHIEF COMPLAINT: Status post I and D of the gluteal abscess. HISTORY OF PRESENT ILLNESS: This is a 56-year-old male with past medical history significant for diabetes, hypertension, hyperlipidemia, who presents with rectal pain and imaging studies showed abscess of the anal and rectal region, status post I and D. Currently complains of pain at surgical sites. Otherwise, doing okay. Denies any chest pain, no shortness of breath, no cough, no headache, no nausea, no vomiting, no abdominal pain. Appetite is okay. Resting comfortably. ALLERGIES: MUSHROOM. PAST MEDICAL HISTORY: As mentioned above. PAST SURGICAL HISTORY: Hernia surgery. MEDICATIONS: The patient is on aspirin 81 mg p.o. daily, atorvastatin 10 mg p.o. at bedtime, glyburide 10 mg p.o. b.i.d., ibuprofen 600 mg p.o. q. 6 hours p.r.n., insulin sliding scale, lisinopril 2.5 mg p.o. daily, metformin 1000 mg p.o. b.i.d., Bactrim 1 tablet p.o. b.i.d. FAMILY HISTORY: Noncontributory. SOCIAL HISTORY: He says he quit smoking about a month ago. Did not drink alcohol in the last 16 years, currently living in skilled nursing. REVIEW OF SYSTEMS: As per HPI. Rest of review of systems is negative. PHYSICAL EXAMINATION: GENERAL: The patient is of moderate build, not in acute distress. VITAL SIGNS: Temperature 36.7, pulse 65, respiratory rate 18, blood pressure 112/68, oxygen 97% on room air. HEENT: Atraumatic. NECK: No neck masses seen. CARDIOVASCULAR: S1 and S2 heard. Regular rate and rhythm. No murmur, no gallop. RESPIRATORY SYSTEM: Normal AP diameter. No accessory muscle use. No wheezing, no crackles. ABDOMEN: Soft, bowel sounds present, nontender, no distention. CENTRAL NERVOUS SYSTEM: Cranial nerves II-XII grossly intact, nonfocal. EXTREMITIES: No edema, no erythema. SKIN: Gluteal region, dressing is intact. LABORATORY DATA: WBC 9.7, hemoglobin 14.7, hematocrit 41.2, platelets 190. Sodium 133, potassium 4.3, chloride 102, bicarbonate 23, BUN 17, creatinine 1.07, serum glucose 298, calcium 9.7, total bilirubin 0.6, AST 10, ALT 16, alkaline phosphatase 115. Lipase 57. MRSA screen negative. SARS-CoV-2 PCR negative. IMAGING DATA: CT of abdomen and pelvis, inflammatory process in the medial right buttock along the gluteal crease consistent with cellulitis and abscess, mild splenomegaly. ASSESSMENT AND PLAN: This is a 56-year-old male status post I and D of his anorectal abscess. 1. Rectal abscess, status post I and D: On Zosyn, management as per surgery. 2. History of diabetes: Hold his home medication. Placed on insulin sliding scale.Glycemic pharmacy consulted. Follow the blood sugars. 3. History of hyperlipidemia: On statin. 4. History of hypertension: On lisinopril. 5. Deep venous thrombosis prophylaxis as per surgery. DISPOSITION: As per surgery. Job ID: [id number] [facility]
[2021-08-23] MEDS: PIPERACILLIN/TAZOBACTAM 3.375 GM in DEXTROSE 5% 100 ML IV SCH ×3 (04:25→21:15)
[2021-08-23 07:33] LABS: Basophils # (auto) 0.04 K/uL (0-0.2); Basophils % (auto) 0.5 %; Eosinophils # (auto) 0.16 K/uL (0-0.5); Hematocrit (blood only) 36.1 % (42-52); Immature Granulocytes # (auto) 0.02 K/uL (0.00-0.02); Immature Granulocytes % (auto) 0.3 %; Lymphocytes # (auto) 0.94 K/uL (1.2-3.4); Lymphocytes % (auto) 11.9 %; Mean Corpuscular Hemoglobin 30.2 pg (25-34); Mean Corpuscular Volume 83.8 fL (80-100); Mean Platelet Volume 8.4 fL (7.4-10.4); Monocytes # (auto) 0.97 K/uL (0.11-0.59); Monocytes % (auto) 12.3 %; Neutrophils # (auto) 5.77 K/uL (1.4-6.5); Platelet Count 182 K/uL (130-400); RDW Coefficient of Variation 12.8 % (11.5-14.5); Red Blood Count 4.31 M/uL (4.7-6.1)
[2021-08-23] MEDS: ASPIRIN 81 MG CHEW PO SCH (08:24)
[2021-08-23] MEDS: lisinopril 2.5 MG TAB PO SCH (08:24)
[2021-08-23 09:49] LABS: Estimated Average Glucose 260 mg/dl; Hemoglobin A1C 10.7 % (4.5-5.6)
--- NOTE | 2021-08-23 10:27 | Pharmacy Report ---
Pharmacy Glycemic Short Note 2 - Date of Service August 23, 2021 - Glycemic Short BSG Results (Last 24 hours): 08/22/21 08/22/21 08/22/21 11:40 16:41 19:25 Glucose 298 H POC Glucose 255 H 258 H 08/22/21 08/23/21 08/23/21 21:23 00:03 04:07 Glucose POC Glucose 238 H 124 H 124 H 08/23/21 08:10 Glucose POC Glucose 153 H OUTPATIENT ANTIDIABETIC REGIMEN: * metformin 1 gm bid, glyburide 10 mg bid, regular insulin SSI * A1c 10.7% ASSESSMENT: * 56 year old male with PMHx significant for DM, htn, hld - presenting with rectal pain/abscess. Now s/p I&D * Pharmacy consulted to help with glycemic management * Received total of 29 units of insulin yesterday, of which 15 units were basal insulin * Fasting BSG 153 mg/dL - plan to continue with Lantus tonight PLAN FOR INPATIENT GLYCEMIC CONTROL: * Hold outpatient oral diabetes medications * Basal insulin * Lantus 15 units HS * Bolus insulin * NovoLog per scale ACHS or Q6hrs while NPO * Goal Range: Low 110 mg/dL - High 140 mg/dL * Correction Factor: 30 mg/dL/unit * Nutritional / Prandial insulin per carb ratio of 1 unit per 10 grams CHO consumed PLAN FOR DISCHARGE: * A1c 10.7% * A1c is greater than or equal to 10% - guidelines recommend triple therapy with metformin + basal insulin + (GLP1-RA OR prandial insulin) * Patient may benefit from addition of basal insulin on discharge. Not sure of prior A1c values. Will continue to follow and provide recommendations once insulin needs better established.
--- NOTE | 2021-08-23 11:25 | Hospitalist Progress Note ---
Date of Service August 23, 2021 Assessment & Plan (1) Abscess of anal or rectal region: (2) Hypertension: (3) Dyslipidemia: (4) Diabetes mellitus: Plan: This is a 56-year-old male who has known past medical history of T2DM, HTN, HLD who presented to the ED on 08/22/2021 secondary to rectal abscess underwent I&D by Dr. Collins on 08/22/2021. Anorectal abscess status post I&D, POD #1 EBL 5 mL Continue IV Zosyn await wound culture tolerating diet, D/C IVF pain/wound control per surgery T2DM, uncontrolled A1c 10.7 on Metformin, glyburide and Novolin R as outpatient Glycemic pharmacy on board, appreciate their recommendation Consult telehealth nurse educator - appreciate input, recommend d/c glyburide and starting Lantus when [facility] will need to discuss with med staff at [facility] regarding glycemic control and adjustment of diabetic regimen HTN bp on low side today 106/61 on low dose lisinopril, add parameters HLD statin DVT ppx: SCD per surg Dispo:med/surg, per surg PCP: Snf FULL CODE Pt was seen and examined in collaboration with Dr. Zazueta, please see addendum Thank you for this consultation. We will follow the patient with you during their hospital stay. You can reach a member of the [facility] Hospitalist Team 14/05 via hospitalist josie cornejo on tiger text. Admission and Anticipated Discharge Date Admission Date: August 22, 2021 Supervising Physician Co-Signing Physician Notes 56-year-old man with history of diabetes, hypertension, hyperlipidemia who presented with rectal pain and found to have rectal abscess. Status post incision and drainage. Patient seen and examined today. Reports pain is controlled. Physical exam notable for clean dressing over the surgical site. Rectal abscess status post I&D postop day 1 Pain control Wound culture growing staph spp Continue current antibiotics Zosyn and follow-up speciation and sensitivities A1c is 10.7 Continue insulin per protocol to keep blood glucose controlled as this is paramount for good healing Agree with other plans as detailed by Ellie Arias PA-C Subjective Patient was seen and examined in room 323-1. Follow-up rectal abscess status post I&D, POD #1. He complains of, "pain in my room." He states pain is significantly improved since prior to arrival. He denies any fever, chills, sweats, lightheadedness, dizziness, chest pain, shortness of breath, nausea, vomiting, abdominal pain. He is tolerating diet. No bowel movement but passing flatus. day guard at bedside. Review of Systems Review of Systems: All systems reviewed & are unremarkable except as noted in HPI & below Physical Exam Physical Exam: Gen: WD/WN, NAD, A&O x3 HEENT: Normocephalic, atraumatic, conjunctivae moist, sclerae anicteric, mucous membranes moist. Lung: Clear to Auscultation bilaterally, no wheezes/rales/rhonchi Heart: Regular rate, regular rhythm, no murmurs, rubs, or gallops Abdomen: Soft, NT, ND +BS x 4 Extremities: No edema Skin: Warm, no rash, negative turgor. : Rectal dressing CDI Results & Data Results & Data ([facility]) Vital Signs (Past 12 Hours) Vital Signs Temp Pulse Resp BP Pulse Ox 08/23/21 07:24 37.0 C 54 L 18 106/61 97 08/23/21 04:12 36.8 C 67 18 110/63 97 08/22/21 23:33 36.7 C 65 18 112/68 97 Laboratory Results Short CBC 08/22/21 08/23/21 Range/Units 11:40 07:14 WBC 9.75 7.90 (4.8-10.8) K/uL Hgb 14.7 13.0 L (14.0-18.0) g/dL Hct 41.2 L 36.1 L (42-52) % Plt Count 190 182 (130-400) K/uL BMP 08/22/21 11:40 Sodium 133 L Potassium 4.3 Chloride 102 Carbon Dioxide 23 BUN 17 Creatinine 1.07 Glucose 298 H Calcium 9.7 Liver Function 08/22/21 Range/Units 11:40 Total Bilirubin 0.6 (0.2-1) mg/dl AST 10 L (15-37) U/L ALT 16 (12-78) U/L Alkaline Phosphatase 115 (45-117) U/L Albumin 3.5 (3.4-5.0) gm/dl Medications Administered Current Inpatient Medications Aspirin (Aspirin 81 Mg Chew) 81 mg PO DAILY ANTONIO Stop: 09/22/21 08:59 Last Admin: 08/23/21 08:24 Dose: 81 mg Documented by: Atorvastatin Calcium (Atorvastatin 10 Mg Tab) 10 mg PO HS ANTONIO Stop: 09/21/21 20:59 Last Admin: 08/22/21 21:19 Dose: 10 mg Documented by: Dextrose (Dextrose 50% 50 Ml Syringe) 25 - 50 ml IV UD PRN; Protocol PRN Reason: Hypoglycemia Protocol Stop: 09/21/21 19:29 Glucagon (Glucagon For Inj 1 Mg Vial) 1 mg IM UD PRN; Protocol PRN Reason: Hypoglycemia Protocol Stop: 09/21/21 19:29 Glucose (Glucose 40% Gel 15 Gm Tube) 15 - 30 gm PO UD PRN; Protocol PRN Reason: Hypoglycemia Protocol Stop: 09/21/21 19:29 Glucose (Glucose 10 Tabs/Tube) 4 - 8 tabs PO UD PRN; Protocol PRN Reason: Hypoglycemia Protocol Stop: 09/21/21 19:29 Hydromorphone HCl (Hydromorphone Inj 0.5 Mg/0.5 Ml Syr) 0.5 mg IV Q6H PRN PRN Reason: Pain Stop: 09/05/21 18:03 Lactated Ringer's (Lr) 1,000 mls @ 80 mls/hr IV .[id number] ANTONIO Stop: 09/21/21 19:14 Last Admin: 08/23/21 11:20 Dose: 80 mls/hr Documented by: Piperacillin Sod/Tazobactam (Sod 3.375 gm/ Dextrose) 115 mls @ 28.75 mls/hr IV Q8H ANTONIO; Protocol Stop: 09/01/21 19:59 Last Infusion: 08/23/21 08:25 Dose: Infused Documented by: Ibuprofen (Ibuprofen 600 Mg Tab) 600 mg PO Q6H PRN PRN Reason: Pain Stop: 09/21/21 18:03 Last Admin: 08/23/21 04:24 Dose: 600 mg Documented by: Insulin Aspart (Insulin Aspart 100 Units/Ml 3 Ml Pen) 0 units SC ACHS ANTONIO Stop: 09/21/21 20:59 Last Admin: 08/23/21 08:56 Dose: 7 units Documented by: Lisinopril (Lisinopril 2.5 Mg Tab) 2.5 mg PO DAILY ANTONIO Stop: 09/22/21 08:59 Last Admin: 08/23/21 08:24 Dose: 2.5 mg Documented by: Miscellaneous (Carbohydrates For Hypoglycemia ) 15 - 30 gm PO UD PRN PRN Reason: Hypoglycemia Treatment Stop: 09/21/21 19:29 Miscellaneous Information (Pharmacy Glycemic Mgmt Consult) 1 ea N/A UD PRN PRN Reason: Consult Stop: 09/21/21 17:23 Miscellaneous Information (Piperacill/Tazobac Consult Active) 1 ea N/A UD PRN PRN Reason: Consult Stop: 09/21/21 18:03 Oxycodone/Acetaminophen (Oxycodone/Acetaminophen 5mg/325mg Tab) 1 tab PO Q4H PRN PRN Reason: Pain Stop: 09/05/21 22:59 Trimethoprim/Sulfamethoxazole (Sulfamethoxazole/Trimethoprim Ds 800/160mg Tab) 1 tab PO BID ANTONIO Stop: 09/01/21 20:59 Last Admin: 08/22/21 21:18 Dose: 1 tab Documented by:
[2021-08-23] MEDS ORDERED: ACETAMINOPHEN 325 MG TAB PO PRN (12:43)
--- NOTE | 2021-08-23 12:51 | Surgery Progress Note ---
Date of Service August 23, 2021 Assessment & Plan (1) Abscess of anal or rectal region: Plan: POD # 1 s/p I&D of perirectal abscess -afebrile, vss - postop pain controlled - no leukocytosis - culture with staphylococcus, sensitivity pending Plan: Continue DM 1 diet continue pain management as needed, ad PO Tylenol stool softener BID ambulate continue IV Zosyn wound care nurse consulted for packing change tomorrow. Will determine if [facility] can do packing changes or if needs wound care follow-up Bo drain will stay until follow-up with Dr. dougherty in 2 weeks likely discharge tomorrow Dr. dougherty has seen and examined pt, agrees with above. Admission and Anticipated Discharge Date Admission Date: August 22, 2021 Subjective pain at incision site but controlled no nausea or vomiting tolerating diet urinating without difficulty Physical Exam Constitutional: WD/WN, vitals as above no acute distress and not ill appearing Respiratory: normal respiratory effort; no respiratory distress and no labored breathing Gastrointestinal (Abdomen): Right buttock with incision with Bo drain in place and packing present. Surrounding edema present. bloody serosanguineous drainage on dressing. Skin: no rashes, warm and dry Psychiatric: Orientation: alert and oriented x 3 Results & Data ([facility]) Vital Signs (Past 12 Hours) Vital Signs Temp Pulse Resp BP Pulse Ox 08/23/21 07:24 37.0 C 54 L 18 106/61 97 08/23/21 04:12 36.8 C 67 18 110/63 97 Laboratory Results 08/23/21 08/23/21 08/23/21 Range/Units 12:07 08:10 07:14 WBC (4.8-10.8) K/uL RBC (4.7-6.1) M/uL Hgb (14.0-18.0) g/dL Hct (42-52) % MCV (80-100) fL MCH (25-34) pg MCHC (32-36) g/dL RDW Std Deviation (36.4-46.3) fL RDW Coeff of Anh (11.5-14.5) % Plt Count (130-400) K/uL MPV (7.4-10.4) fL Immature Gran % (Auto) % Neut % (Auto) % Lymph % (Auto) % [place] % (Auto) % Eos % (Auto) % Baso % (Auto) % Neut # (Auto) (1.4-6.5) K/uL Lymph # (Auto) (1.2-3.4) K/uL [place] # (Auto) (0.11-0.59) K/uL Eos # (Auto) (0-0.5) K/uL Baso # (Auto) (0-0.2) K/uL Immature Gran # (Auto) (0.00-0.02) K/uL POC Glucose 246 H 153 H (70-99) mg/dl Estimat Average Glucose mg/dl Hemoglobin A1c (4.5-5.6) % Nasal Screen MRSA (PCR) (Negative) COVID-19 Eval Order SARS-CoV-2 (PCR) (Negative) Hepatitis C Ab Screen Pending 08/23/21 08/23/21 08/23/21 Range/Units 07:14 07:14 04:07 WBC 7.90 (4.8-10.8) K/uL RBC 4.31 L (4.7-6.1) M/uL Hgb 13.0 L (14.0-18.0) g/dL Hct 36.1 L (42-52) % MCV 83.8 (80-100) fL MCH 30.2 (25-34) pg MCHC 36.0 (32-36) g/dL RDW Std Deviation 39.0 (36.4-46.3) fL RDW Coeff of Anh 12.8 (11.5-14.5) % Plt Count 182 (130-400) K/uL MPV 8.4 (7.4-10.4) fL Immature Gran % (Auto) 0.3 % Neut % (Auto) 73.0 % Lymph % (Auto) 11.9 % [place] % (Auto) 12.3 % Eos % (Auto) 2.0 % Baso % (Auto) 0.5 % Neut # (Auto) 5.77 (1.4-6.5) K/uL Lymph # (Auto) 0.94 L (1.2-3.4) K/uL [place] # (Auto) 0.97 H (0.11-0.59) K/uL Eos # (Auto) 0.16 (0-0.5) K/uL Baso # (Auto) 0.04 (0-0.2) K/uL Immature Gran # (Auto) 0.02 (0.00-0.02) K/uL POC Glucose 124 H (70-99) mg/dl Estimat Average Glucose 260 mg/dl Hemoglobin A1c 10.7 H (4.5-5.6) % Nasal Screen MRSA (PCR) (Negative) COVID-19 Eval Order SARS-CoV-2 (PCR) (Negative) Hepatitis C Ab Screen 08/23/21 08/22/21 08/22/21 Range/Units 00:03 22:13 21:23 WBC (4.8-10.8) K/uL RBC (4.7-6.1) M/uL Hgb (14.0-18.0) g/dL Hct (42-52) % MCV (80-100) fL MCH (25-34) pg MCHC (32-36) g/dL RDW Std Deviation (36.4-46.3) fL RDW Coeff of Anh (11.5-14.5) % Plt Count (130-400) K/uL MPV (7.4-10.4) fL Immature Gran % (Auto) % Neut % (Auto) % Lymph % (Auto) % [place] % (Auto) % Eos % (Auto) % Baso % (Auto) % Neut # (Auto) (1.4-6.5) K/uL Lymph # (Auto) (1.2-3.4) K/uL [place] # (Auto) (0.11-0.59) K/uL Eos # (Auto) (0-0.5) K/uL Baso # (Auto) (0-0.2) K/uL Immature Gran # (Auto) (0.00-0.02) K/uL POC Glucose 124 H 238 H (70-99) mg/dl Estimat Average Glucose mg/dl Hemoglobin A1c (4.5-5.6) % Nasal Screen MRSA (PCR) Negative (Negative) COVID-19 Eval Order SARS-CoV-2 (PCR) (Negative) Hepatitis C Ab Screen 08/22/21 08/22/21 08/22/21 Range/Units 19:25 16:41 14:25 WBC (4.8-10.8) K/uL RBC (4.7-6.1) M/uL Hgb (14.0-18.0) g/dL Hct (42-52) % MCV (80-100) fL MCH (25-34) pg MCHC (32-36) g/dL RDW Std Deviation (36.4-46.3) fL RDW Coeff of Anh (11.5-14.5) % Plt Count (130-400) K/uL MPV (7.4-10.4) fL Immature Gran % (Auto) % Neut % (Auto) % Lymph % (Auto) % [place] % (Auto) % Eos % (Auto) % Baso % (Auto) % Neut # (Auto) (1.4-6.5) K/uL Lymph # (Auto) (1.2-3.4) K/uL [place] # (Auto) (0.11-0.59) K/uL Eos # (Auto) (0-0.5) K/uL Baso # (Auto) (0-0.2) K/uL Immature Gran # (Auto) (0.00-0.02) K/uL POC Glucose 258 H 255 H (70-99) mg/dl Estimat Average Glucose mg/dl Hemoglobin A1c (4.5-5.6) % Nasal Screen MRSA (PCR) (Negative) COVID-19 Eval Order SARS-CoV-2 (PCR) NEGATIVE (Negative) Hepatitis C Ab Screen 08/22/21 Range/Units 14:25 WBC (4.8-10.8) K/uL RBC (4.7-6.1) M/uL Hgb (14.0-18.0) g/dL Hct (42-52) % MCV (80-100) fL MCH (25-34) pg MCHC (32-36) g/dL RDW Std Deviation (36.4-46.3) fL RDW Coeff of Anh (11.5-14.5) % Plt Count (130-400) K/uL MPV (7.4-10.4) fL Immature Gran % (Auto) % Neut % (Auto) % Lymph % (Auto) % [place] % (Auto) % Eos % (Auto) % Baso % (Auto) % Neut # (Auto) (1.4-6.5) K/uL Lymph # (Auto) (1.2-3.4) K/uL [place] # (Auto) (0.11-0.59) K/uL Eos # (Auto) (0-0.5) K/uL Baso # (Auto) (0-0.2) K/uL Immature Gran # (Auto) (0.00-0.02) K/uL POC Glucose (70-99) mg/dl Estimat Average Glucose mg/dl Hemoglobin A1c (4.5-5.6) % Nasal Screen MRSA (PCR) (Negative) COVID-19 Eval Order Covid19 at [facility] SARS-CoV-2 (PCR) (Negative) Hepatitis C Ab Screen Microbiology 08/22/21 16:20 Gram Stain - Final Rectal Abscess Aerobic and Anaerobic Culture - Preliminary Staphylococcus species
[2021-08-23] MEDS: INSULIN GLARGINE SOLOSTAR 100 UNITS/ML 3 ML PEN SC SCH (13:26)
[2021-08-23] MEDS: DOCUSATE SODIUM 100 MG CAP PO SCH (21:18)
[2021-08-23] MEDS: ATORVASTATIN 10 MG TAB PO SCH (21:18)
[2021-08-24 01:05] LABS: Appearance Urine Clear (Clear); Bilirubin Urine Negative (Negative); Blood Urine Negative (Negative); Color Urine Yellow; Glucose Urine UA Negative (Negative); Ketones Urine Negative (Negative); Leukocyte Esterase Urine Negative (Negative); Nitrite Urine Negative (Negative); Protein Urine Negative (Negative); Specific Gravity Urine 1.005 (1.000-1.030); Urobilinogen Urine Negative (Negative)
[2021-08-24] MEDS: PIPERACILLIN/TAZOBACTAM 3.375 GM in DEXTROSE 5% 100 ML IV SCH (05:11)
[2021-08-24] MEDS: DOCUSATE SODIUM 100 MG CAP PO SCH ×2 (08:17→21:45)
[2021-08-24] MEDS: lisinopril 2.5 MG TAB PO SCH (08:17)
[2021-08-24] MEDS: ASPIRIN 81 MG CHEW PO SCH (08:50)
[2021-08-24] MEDS: INSULIN GLARGINE SOLOSTAR 100 UNITS/ML 3 ML PEN SC SCH ×2 (08:51→13:34)
[2021-08-24] MEDS: INSULIN ASPART 100 UNITS/ML 3 ML PEN SC SCH ×4 (08:52→21:40)
--- NOTE | 2021-08-24 09:21 | Pharmacy Report ---
Pharmacy Glycemic Short Note 2 - Date of Service August 24, 2021 - Glycemic Short BSG Results (Last 24 hours): 08/23/21 08/23/21 08/23/21 12:07 17:09 21:00 POC Glucose 246 H 176 H 150 H 08/24/21 08:14 POC Glucose 148 H OUTPATIENT ANTIDIABETIC REGIMEN: * metformin 1 gm bid, glyburide 10 mg bid, regular insulin SSI * A1c 10.7% ASSESSMENT: 08/24/21: * POD #2 status post I&D for anorectal abscess * Patient received 51 units of SQ insulin yesterday (20 units basal + 31 units bolus) * Fasting BSG is above goal and current regimen is ~61% bolus insulin, therefore Lantus will be increased. * Severe hyperglycemia with lunch, BSG 405 mg/dL - confirmed with venous draw, 397 mg/dL. Cause of elevation unknown. Patient was well controlled yesterday and does not have snacks in his room. Will tighten correction factor and carb ratio. Add overnight checks. Background: * 56 year old male with PMHx significant for DM, htn, hld - presenting with rectal pain/abscess. Now s/p I&D * Pharmacy consulted to help with glycemic management * Received total of 29 units of insulin yesterday, of which 15 units were basal insulin * Fasting BSG 153 mg/dL - plan to continue with Lantus tonight PLAN FOR INPATIENT GLYCEMIC CONTROL: * Hold outpatient oral diabetes medications * Basal insulin - increase * Lantus 20 units with breakfast + 10 units at lunch (total 30 units) * 08/25: start 25 units SQ daily * Bolus insulin - tighten * NovoLog per scale ACHS or Q6hrs while NPO * Goal Range: Low 110 mg/dL - High 140 mg/dL * Correction Factor: 18 mg/dL/unit * Nutritional / Prandial insulin per carb ratio of 1 unit per 6 grams CHO consumed PLAN FOR DISCHARGE: * A1c 10.7% * Patient may benefit from addition of basal insulin on discharge. * Add Insulin glargine (Semglee) SQ once daily; recommend starting dose of 20 units * Continue metformin * May consider discontinuing Glyburide * Further recommendations per CDE
[2021-08-24 09:26] LABS: Creatinine Clr Calc Pharmacy 102.9 ml/min; Est GFR (African American) 111.6 ml/min; Est GFR (Non-African American) 96.3 ml/min
[2021-08-24] MEDS ORDERED: INSULIN GLARGINE SOLOSTAR 100 UNITS/ML 3 ML PEN SC ONE ×2 (09:45→13:30)
--- NOTE | 2021-08-24 10:24 | Discharge Summary ---
Date of Service August 24, 2021 Discharge Data Allergies Allergy/AdvReac Type Severity Reaction Status Date / Time mushroom Allergy Unknown Unknown Verified 08/24/21 10:23 Consultations 08/22/21 13:45 Consult General Surgery Stat 08/22/21 18:04 Consult Hospitalist Routine Procedures Performed Operation Date: 08/22/21 17:20 Actual Procedures p Incision and Drainage Rectal Abscess(Not Applicable) - Primitivo Collins MD Ordered Studies 08/22/21 12:02 CT abd pelvis IV con only Stat Diabetes Follow up Diabetes Follow-up Needed for HgbA1c >9% Discharge Plan Discharge Items [facility] Reason For Visit: BEE-RECTAL ABSCESS Discharge Diagnosis: Bee-rectal abscess Activity: Per Instructions section Non-emergency contact: Surgeon Call non-emergency contact if: you have any medication questions, your pain is worsening, you have a fever, your temperature is above 101, your wound has i ncreased redness, your wound has increased drainage and your wound pain has increased Follow-up/Referrals: Ld DALE [Primary Care Provider] - Primitivo Collins MD [Physician] - (Follow-up surgical office in 2 weeks for drain removal) Diet: Regular Addtl Attending Provider Instructions: ACTIVITY RECOMMENDATIONS: * No heavy lifting for 1 week. MEDICATIONS: Resume previous medications unless instructed otherwise by your surgeon. * Colace 100 mg 2 times per day * Extra Strength Tylenol 500 - 1000 mg every 4 hours, as needed for pain * Ibuprofen 600 mg every 6 hours, as needed for pain * Bactrim DS BID for 10 days, finish entire course SPECIAL CARE INSTRUCTIONS: * Change packing every other day * Surgical drain to stay in place until seen in follow-up of surgical office * Change outer dressing daily or as needed to keep clean and dry * Call the surgeon's office with any questions or concerns - (ex. temperature higher than 101 degrees F, excessive bleeding or pain). FOLLOW UP VISIT: If not already scheduled, please call the office to schedule a two week follow- up appointment. Office number . May return to office work on Sunday08/29/2021 Addtl [employer] Functional Tester Provider Instructions: Your A1C was found to be high at 10.7. Your diabetes is uncontrolled. You met with a parent educator to discuss treatment options for your diabetes and dietary changes. It is recommended you meet with Physician at [facility] and discuss other treatment options for diabetes to improve blood sugar control. The ems educator recommended discontinuation of Glyburide and starting a long acting insulin called Lantus. You will need more frequent blood sugar checks, including in the morning, before all meals and at dinner. A Goal A1C for you is less than 7.0. Good blood sugar/diabetes control is extremely important for wound healing and overall health. Uncontrolled diabetes can lead to heart disease and stroke. It has been a pleasure taking care of you. Please take care of yourself. If you have any questions regarding your recent hospitalization please contact [facility] and request Doris Kennedyist @ [phone]. CATHI Argueta Recommendations for medical staff at [facility]: Increase frequency of accuchecks to AC/HS. Recommend discontinuing glyburide and starting long acting Insulin Lantus. Recommend repeat a1c in 3 months. Goal A1C < 7.0 Pending Studies at Discharge: No Stand-Alone Forms: My [facility] Skilled Items Patient informed of condition?: Yes Discharge Level of Care: Other Communicable Disease: No Discharge Prognosis: Stable Lines: None Urinary Catheter: No Medications and DC Order Prescriptions: Continued atorvastatin 10 mg Tablet 10 mg PO HS RF: 0 glyburide 5 mg Tablet 10 mg PO BID RF: 0 metformin 1,000 mg Tablet 1,000 mg PO BID RF: 0 ibuprofen 200 mg Tablet 600 mg PO Q6H PRN (Reason: Pain) RF: 0 aspirin 81 mg Tablet,Chewable 81 mg PO DAILY RF: 0 lisinopril 2.5 mg Tablet 2.5 mg PO DAILY RF: 0 Novolin R Flexpen 100 unit/mL (3 mL) Insulin Pen 1 sliding scale dose SUBCUT USEASDIRECTD RF: 0 sulfamethoxazole-trimethoprim 800-160 mg Tablet 1 tab PO BID Qty: 20 RF: 0 Discharge Orders: Discharge Order (Routine); Ordered 08/24/21 Ordered By: Mindy Tello/Other Patient Handouts: Diagnosing Hepatitis C Admission Data Admit Date/Time: 08/22/21 16:31 Attending Provider: Primitivo Collins Admit Provider: Primitivo Collins Primary Care Provider: Ld DALE Other Providers: Primitivo Collins ; Margarita Harding ; Lilliam Reid ; Zully Henry ; Radha Rhodes ; Carmelita Fuentes ; Lynne Flowers ; Stephanie Parnell ; Jose Ramon Bush ; Robert Norris ; David Brink ; Emperatriz Flor ; Anabella Powers ; Jayden Michaud ; Lorelei Murphy ; Ellie Arias ; Ken Decker ; Vesta Sandoval ; Marcella Narayan ; Charli Good ; Lay Zazueta I. ; uLkas Moncada ; Juliette Simmons ; Peg Farah sh
--- NOTE | 2021-08-24 10:31 | Hospitalist Progress Note ---
Date of Service August 24, 2021 Assessment & Plan (1) Abscess of anal or rectal region: (2) Hypertension: (3) Dyslipidemia: (4) Diabetes mellitus: Plan: This is a 56-year-old male who has known past medical history of T2DM, HTN, HLD who presented to the ED on 08/22/2021 secondary to rectal abscess underwent I&D by Dr. Collins on 08/22/2021. Anorectal abscess status post I&D, POD #2 EBL 5 mL Continue IV Zosyn Wound culture positive for Staphylococcus species, sensitive to Bactrim Transition to Bactrim DS 1 tablet twice daily for 10 days Discussed with general surgery, patient to discharge back to residential today Dressing changes as per general surgery T2DM, uncontrolled A1c 10.7 on Metformin, glyburide and Novolin R as outpatient Glycemic pharmacy on board, appreciate their recommendation Consult duty officer - appreciate input, recommend d/c glyburide and starting Lantus when returning to residential Instructions placed in discharge paperwork regarding improved glycemic control HTN Blood pressure stable, continue lisinopril HLD statin DVT ppx: SCD per surg Dispo: Discharged back to residential today [facility] Pt was seen and examined in collaboration with Dr. Michaud, please see addendum Thank you for this consultation. We will follow the patient with you during their hospital stay. You can reach a member of the [facility] Hospitalist Team 14/05 via hospitalist role on tiger text. Admission and Anticipated Discharge Date Admission Date: August 22, 2021 Supervising Physician Co-Signing Physician Notes Patient is seen and examined at bedside. States having pain at perirectal abscess region. Denies any chest pain, shortness of breath, dizziness, nausea, abdominal pain On exam patient is moderately built and nourished, no apparent distress, normocephalic atraumatic, lungs are clear to auscultation, normal breath sounds, S1-S2, no murmur, abdomen soft, nontender, normal bowel sounds, alert, awake, oriented, grossly no focal deficits Anorectal abscess S/P I&D Wound culture growing staph species Continue Bactrim Monitor renal function while on Bactrim given also being on lisinopril Avoid NSAIDs as able DM II--agree with insulin therapy while hospitalized. avoid Metformin for now. I personally reviewed the record. Patient is interviewed and examined at bedside. Patient's care is coordinated with Ellie Arias PA-C. Please refer to the documentation above for details of patient's presentation and for discussion of other issues. Subjective Patient was seen and examined in room 323-1. Follow-up rectal abscess status post I&D, POD #2. Patient is currently lying in bed and offers no acute concerns. He continues to have mild incisional discomfort. He denies fever, chills, sweats, lightheadedness, dizziness, chest pain, shortness of breath, nausea, vomiting, abdominal pain. He is tolerating regular diet. + BM Review of Systems Review of Systems: All systems reviewed & are unremarkable except as noted in HPI & below Physical Exam Physical Exam: Gen: WD/WN, NAD, A&O x3 HEENT: Normocephalic, atraumatic, conjunctivae moist, sclerae anicteric, mucous membranes moist. Lung: Clear to Auscultation bilaterally, no wheezes/rales/rhonchi Heart: Regular rate, regular rhythm, no murmurs, rubs, or gallops Abdomen: Soft, NT, ND +BS x 4 Extremities: No edema Skin: Warm, no rash, negative turgor. : Rectal dressing CDI Results & Data Results & Data ([facility]) Vital Signs (Past 12 Hours) Vital Signs Temp Pulse Resp BP Pulse Ox 08/24/21 08:09 36.9 C 55 L 16 110/[address] [facility] 08/24/21 08:32 Creatinine 0.86 Urine 08/24/21 Range/Units 00:50 Urine Color Yellow Urine Appearance Clear (Clear) Urine pH 6.0 (4.5-7.5) Ur Specific [place] 1.005 (1.000-1.030) Urine Protein Negative (Negative) Urine Glucose (UA) Negative (Negative) Medications Administered Current Inpatient Medications Acetaminophen (Acetaminophen 325 Mg Tab) 650 mg PO Q4H PRN PRN Reason: pain Stop: 09/22/21 12:42 Aspirin (Aspirin 81 Mg Chew) 81 mg PO DAILY ANTONIO Stop: 09/22/21 08:59 Last Admin: 08/24/21 08:50 Dose: 81 mg Documented by: Atorvastatin Calcium (Atorvastatin 10 Mg Tab) 10 mg PO HS ANTONIO Stop: 09/21/21 20:59 Last Admin: 08/23/21 21:18 Dose: 10 mg Documented by: Dextrose (Dextrose 50% 50 Ml Syringe) 25 - 50 ml IV UD PRN; Protocol PRN Reason: Hypoglycemia Protocol Stop: 09/21/21 19:29 Docusate Sodium (Docusate Sodium 100 Mg Cap) 100 mg PO BID ANTONIO Stop: 09/22/21 20:59 Last Admin: 08/24/21 08:17 Dose: 100 mg Documented by: Glucagon (Glucagon For Inj 1 Mg Vial) 1 mg IM UD PRN; Protocol PRN Reason: Hypoglycemia Protocol Stop: 09/21/21 19:29 Glucose (Glucose 40% Gel 15 Gm Tube) 15 - 30 gm PO UD PRN; Protocol PRN Reason: Hypoglycemia Protocol Stop: 09/21/21 19:29 Glucose (Glucose 10 Tabs/Tube) 4 - 8 tabs PO UD PRN; Protocol PRN Reason: Hypoglycemia Protocol Stop: 09/21/21 19:29 Hydromorphone HCl (Hydromorphone Inj 0.5 Mg/0.5 Ml Syr) 0.5 mg IV Q6H PRN PRN Reason: Pain Stop: 09/05/21 18:03 Ibuprofen (Ibuprofen 600 Mg Tab) 600 mg PO Q6H PRN PRN Reason: Pain Stop: 09/21/21 18:03 Last Admin: 08/23/21 04:24 Dose: 600 mg Documented by: Insulin Aspart (Insulin Aspart 100 Units/Ml 3 Ml Pen) 0 units SC ACHS ANTONIO Stop: 09/21/21 20:59 Last Admin: 08/24/21 08:52 Dose: 17 units Documented by: Insulin Glargine (Insulin Glargine Solostar 100 Units/Ml 3 Ml Pen) 25 units SC DAILY [facility] Stop: 09/23/21 08:59 Lisinopril (Lisinopril 2.5 Mg Tab) 2.5 mg PO DAILY ANTONIO Stop: 09/22/21 08:59 Last Admin: 08/24/21 08:17 Dose: 2.5 mg Documented by: Miscellaneous (Carbohydrates For Hypoglycemia ) 15 - 30 gm PO UD PRN PRN Reason: Hypoglycemia Treatment Stop: 09/21/21 19:29 Miscellaneous Information (Pharmacy Glycemic Mgmt Consult) 1 ea N/A UD PRN PRN Reason: Consult Stop: 09/21/21 17:23 Oxycodone/Acetaminophen (Oxycodone/Acetaminophen 5mg/325mg Tab) 1 tab PO Q4H PRN PRN Reason: Pain Stop: 09/05/21 22:59 Trimethoprim/Sulfamethoxazole (Sulfamethoxazole/Trimethoprim Ds 800/160mg Tab) 1 tab PO BID ANTONIO Stop: 09/01/21 20:59 Last Admin: 08/22/21 21:18 Dose: 1 tab Documented by: Trimethoprim/Sulfamethoxazole (Sulfamethoxazole/Trimethoprim Ds 800/160mg Tab) 1 tab PO Q12 ANTONIO Stop: 09/03/21 09:01
[2021-08-24 13:40] LABS: Beta-Hydroxybutyrate 1.01 mg/dl (0.2-2.81)
--- NOTE | 2021-08-24 14:43 | Surgery Progress Note ---
Date of Service August 24, 2021 Assessment & Plan (1) Abscess of anal or rectal region: Plan: POD # 2 s/p I&D of perirectal abscess - afebrile, vss - postop pain controlled - culture with staphylococcus, sensitive to bactrim Plan: Continue DM 1 diet continue pain management as needed, ad PO Tylenol stool softener BID ambulate transition to oral bactrim DS BID for 10 days [place] drain will stay until follow-up with Dr. dougherty in [address] dougherty has seen and examined pt, agrees with above. Addendum: 08/24/21 2:42 pm Patient was going to be discharged back to care home today however afternoon blood sugar was 397. He is being kept overnight again for glycemic management. Admission and Anticipated Discharge Date Admission Date: August 22, 2021 Subjective feeling better, pain still present but controlled and improving no nausea or vomiting Physical Exam Constitutional: WD/WN, vitals as above Gastrointestinal (Abdomen): Right buttock with wound packing and Bo drain present, serosanguineous drainage on dressing. Skin: no rashes, warm and dry Psychiatric: A+Ox3, euthymic affect Results & Data ([facility]) Vital Signs (Past 12 Hours) Vital Signs Temp Pulse Pulse Resp BP BP Pulse Ox 08/24/21 10:50 36.9 C 61 55 L 16 120/72 110/67 98 08/24/21 08:09 36.9 C 55 L 16 110/67 98 Laboratory Results 08/24/21 08/24/21 08/24/21 Range/Units 12:14 12:05 12:03 Creatinine (0.6-1.4) mg/dl Est Cr Clr Drug Dosing ml/min Est GFR ( Amer) ml/min Est GFR (Non-Af Amer) ml/min Glucose 397 H* (70-99) mg/dl POC Glucose 440 H* 405 H* (70-99) mg/dl Beta-Hydroxybutyric Acd 1.01 (0.2-2.81) mg/dl Urine Color Urine Appearance (Clear) Urine pH (4.5-7.5) Ur Specific [place] (1.000-1.030) Urine Protein (Negative) Urine Glucose (UA) (Negative) Urine Ketones (Negative) Urine Blood (Negative) Urine Nitrite (Negative) Urine Bilirubin (Negative) Urine Urobilinogen (Negative) Ur Leukocyte Esterase (Negative) 08/24/21 08/24/21 08/24/21 Range/Units 08:32 08:14 00:50 Creatinine 0.86 (0.6-1.4) mg/dl Est Cr Clr Drug Dosing 102.9 ml/min Est GFR ( Amer) 111.6 ml/min Est GFR (Non-Af Amer) 96.3 ml/min Glucose (70-99) mg/dl POC Glucose 148 H (70-99) mg/dl Beta-Hydroxybutyric Acd (0.2-2.81) mg/dl Urine Color Yellow Urine Appearance Clear (Clear) Urine pH 6.0 (4.5-7.5) Ur Specific [place] 1.005 (1.000-1.030) Urine Protein Negative (Negative) Urine Glucose (UA) Negative (Negative) Urine Ketones Negative (Negative) Urine Blood Negative (Negative) Urine Nitrite Negative (Negative) Urine Bilirubin Negative (Negative) Urine Urobilinogen Negative (Negative) Ur Leukocyte Esterase Negative (Negative) 08/23/21 08/23/21 Range/Units 21:00 17:09 Creatinine (0.6-1.4) mg/dl Est Cr Clr Drug Dosing ml/min Est GFR ( Amer) ml/min Est GFR (Non-Af Amer) ml/min Glucose (70-99) mg/dl POC Glucose 150 H 176 H (70-99) mg/dl Beta-Hydroxybutyric Acd (0.2-2.81) mg/dl Urine Color Urine Appearance (Clear) Urine pH (4.5-7.5) Ur Specific [place] (1.000-1.030) Urine Protein (Negative) Urine Glucose (UA) (Negative) Urine Ketones (Negative) Urine Blood (Negative) Urine Nitrite (Negative) Urine Bilirubin (Negative) Urine Urobilinogen (Negative) Ur Leukocyte Esterase (Negative)
[2021-08-24] MEDS: SULFAMETHOXAZOLE/TRIMETHOPRIM DS 800/160MG TAB PO SCH (21:44)
[2021-08-24] MEDS: ATORVASTATIN 10 MG TAB PO SCH (21:45)
[2021-08-25] MEDS: INSULIN ASPART 100 UNITS/ML 3 ML PEN SC SCH ×4 (00:45→12:54)
[2021-08-25 07:06] LABS: Hematocrit (blood only) 40.2 % (42-52); Hemoglobin 14.1 g/dL (14.0-18.0); Mean Corpuscular Hemoglobin 30.4 pg (25-34); Mean Corpuscular Hgb Conc 35.1 g/dL (32-36); Mean Corpuscular Volume 86.6 fL (80-100); Mean Platelet Volume 8.7 fL (7.4-10.4); Platelet Count 204 K/uL (130-400); RDW Coefficient of Variation 13.1 % (11.5-14.5); RDW Standard Deviation 41.3 fL (36.4-46.3); Red Blood Count 4.64 M/uL (4.7-6.1); White Blood Count 5.03 K/uL (4.8-10.8)
[2021-08-25 07:38] LABS: BUN Creatinine Ratio 15.4 (10-20); Calcium 9.3 mg/dl (8.5-10.1); Creatinine Clr Calc Pharmacy 95.2 ml/min; Est GFR (African American) 105.2 ml/min; Est GFR (Non-African American) 90.8 ml/min; Potassium 3.9 mmol/L (3.5-5.1)
[2021-08-25] MEDS: ASPIRIN 81 MG CHEW PO SCH (08:38)
[2021-08-25] MEDS: DOCUSATE SODIUM 100 MG CAP PO SCH (08:39)
[2021-08-25] MEDS: lisinopril 2.5 MG TAB PO SCH (08:39)
[2021-08-25] MEDS: SULFAMETHOXAZOLE/TRIMETHOPRIM DS 800/160MG TAB PO SCH (08:39)
[2021-08-25] MEDS: INSULIN GLARGINE SOLOSTAR 100 UNITS/ML 3 ML PEN SC SCH (08:41)
--- NOTE | 2021-08-25 08:50 | Hospitalist Progress Note ---
Date of Service August 25, 2021 Assessment & Plan (1) Abscess of anal or rectal region: (2) Hypertension: (3) Dyslipidemia: (4) Diabetes mellitus: Plan: This is a 56-year-old male who has known past medical history of T2DM, HTN, HLD who presented to the ED on 08/22/2021 secondary to rectal abscess underwent I&D by Dr. Collins on 08/22/2021. Anorectal abscess status post I&D, POD #3 EBL 5 mL Continue IV Zosyn Wound culture positive for Staphylococcus species, sensitive to Bactrim Transition to Bactrim DS 1 tablet twice daily for 10 days Discussed with general surgery, patient to discharge back to [facility] today Dressing changes as per general surgery T2DM, uncontrolled A1c 10.7 on Metformin, glyburide and Novolin R sliding scale as outpatient Glycemic pharmacy and early childhood educator aide on board, appreciate their recommendations Discharging on 20u daily insulin glargine, continue Novolin R sliding scale PRN hyperglycemia, discontinue glyburide, HOLD metformin until Bactrim course completed HTN Blood pressure stable, continue lisinopril HLD statin Advised patient and [facility] PA-C to avoid NSAIDs while on Bactrim course. DVT ppx: SCD per surg Dispo: Discharged back to [facility] today PCP: [facility] FULL CODE Pt was seen and examined in collaboration with Dr. Michaud, please see addendum Thank you for this consultation. We will follow the patient with you during their hospital stay. You can reach a member of the [facility] Hospitalist Team 14/05 via hospitalist role on tiger text. Admission and Anticipated Discharge Date Admission Date: August 22, 2021 Supervising Physician Co-Signing Physician Notes Patient is seen and examined at bedside. No new complaints today BGs much better controlled Denies any significant pain at perirectal abscess region. Also denies any chest pain, shortness of breath, dizziness, nausea, abdominal pain On exam patient is moderately built and nourished, no apparent distress, normocephalic atraumatic, lungs are clear to auscultation, normal breath sounds, S1-S2, no murmur, abdomen soft, nontender, normal bowel sounds, alert, awake, oriented, grossly no focal deficits Anorectal abscess S/P I&D Wound culture growing staph species Continue Bactrim Monitor renal function while on Bactrim given also being on lisinopril Avoid NSAIDs as able Advised to hold Metformin while on antibiotics DM II Hold Metformin, glyburide Continue insulin therapy as above Further insulin adjustment as per physician at facility I personally reviewed the record. Patient is interviewed and examined at bedside. Patient's care is coordinated with Stephanie Parnell PA-C. Please refer to the documentation above for details of patient's presentation and for discussion of other issues. Subjective Seen and examined in 323-1. Feeling better, pain still present but controlled and improving. BSGs controlled overnight. No chest pain, SOB, nausea or vomiting. Tolerating diet. No dysuria, constipation or diarrhea. Review of Systems Review of Systems: At least ten systems reviewed and negative except as noted in the HPI. Physical Exam Physical Exam: Gen: WD/WN, NAD, A&O x3 HEENT: Normocephalic, atraumatic, conjunctivae moist, sclerae anicteric, mucous membranes moist. Lung: Clear to Auscultation bilaterally, no wheezes/rales/rhonchi Heart: Regular rate, regular rhythm, no murmurs, rubs, or gallops Abdomen: Soft, NT, ND +BS x 4 Extremities: No edema Skin: Warm, no rash, negative turgor. : Rectal dressing CDI Results & Data Results & Data ([facility]) Vital Signs (Past 12 Hours) Vital Signs Temp Pulse Resp BP Pulse Ox 08/25/21 00:05 36.4 C L 52 L 18 113/65 98 Laboratory Results Short CBC 08/25/21 Range/Units 06:49 WBC 5.03 (4.8-10.8) K/uL Hgb 14.1 (14.0-18.0) g/dL Hct 40.2 L (42-52) % Plt Count 204 (130-400) K/uL BMP 08/24/21 08/25/21 12:14 06:49 Sodium 138 Potassium 3.9 Chloride 105 Carbon Dioxide 27 BUN 14 Creatinine 0.93 Glucose 397 H* 104 H Calcium 9.3 Diagnostic Findings Abdomen/Pelvis CT 08/22/21 12:02 CT SCAN OF THE ABDOMEN AND PELVIS WITH IV CONTRAST CLINICAL HISTORY: Perianal abscess COMPARISON STUDY: No priors. TECHNIQUE: Following the IV administration of 95 cc of Optiray 320, CT scan of the abdomen and pelvis is performed from the lung bases to the proximal femora. Images are reviewed in the axial, sagittal, and coronal planes. IV contrast was administered without complication. A dose lowering technique was utilized adhering to the principles of ALARA. CT DOSE: 357.78 mGy.cm FINDINGS: Lung bases: The heart is normal in size and without pericardial effusion. The lung bases are clear noting mild bibasilar scarring/atelectasis. Liver: The contrast-enhanced liver is normal in size, contour, and attenuation. There is no intrahepatic biliary ductal dilatation. The hepatic veins and portal veins are patent. Gallbladder: Unremarkable. Spleen: The spleen is mildly enlarged measuring up to 13.8 cm in length. Pancreas: Unremarkable. Adrenal glands: Unremarkable. Kidneys: The contrast enhanced kidneys are normal in size and without hydronephrosis. The kidneys enhance symmetrically. Abdominal vasculature: The abdominal aorta is normal in course and caliber noting moderate to advanced atherosclerotic calcification. 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 Bowel: There is moderate colonic fecal retention. No bowel obstruction is seen. The appendix is well-visualized and normal. Peritoneum: There is no intraperitoneal free air or abdominal ascites. There is a fat-containing umbilical hernia. Lymphadenopathy: None. Pelvic viscera: The prostate gland is enlarged and heterogeneous noting median lobe hypertrophy. The bladder is distended, and the wall is thickened/trabeculated indicating chronic outlet obstruction. Skeletal structures: No lytic or blastic lesions are seen. Soft tissues: There is inflammatory process in the medial right buttock along the gluteal crease. This is best seen on axial image #40 and 69. There is a multiloculated and peripherally enhancing fluid collection at this site which measures approximately 2 x 3.5 x 2 cm in aggregate dimension. This is located below the anus, with no clear perianal involvement. There is no definite evidence of fistula. IMPRESSION: 1. There is an inflammatory process in the medial right buttock along the gluteal crease consistent with cellulitis and abscess. 2. There is no clear involvement of the perianal soft tissues, and no clear evidence of fistula. 3. Mild splenomegaly. 4. 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 5. Additional findings as above. ACT 112: Negative or not required by law. Electronically signed by: Gilberto Sanchez M.D. 08/22/2021 1:23 PM
--- NOTE | 2021-08-25 13:27 | Pharmacy Report ---
Pharmacy Glycemic Short Note 2 - Date of Service August 25, 2021 - Glycemic Short BSG Results (Last 24 hours): 08/24/21 08/24/21 08/24/21 12:14 16:59 21:19 Glucose 397 H* POC Glucose 144 H 87 08/25/21 08/25/21 08/25/21 00:04 03:49 06:49 Glucose 104 H POC Glucose 94 84 08/25/21 08/25/21 08:17 12:21 Glucose POC Glucose 112 H 179 H OUTPATIENT ANTIDIABETIC REGIMEN: * metformin 1 gm bid, glyburide 10 mg bid, regular insulin SSI * A1c 10.7% ASSESSMENT: 08/25/21: * POD #3. Patient received 78 units of SQ insulin (30 units basal + 48 units bolus) * Fasting BSG at goal. Will start 25 units of Lantus per day. Patient received 30 units of Lantus yesterday - I suspect this would be too much once at steady state. * Patient appears to require tighter carb coverage with breakfast. Post prandial BSGs trend downward throughout the day. 08/24/21: * POD #2 status post I&D for anorectal abscess * Patient received 51 units of SQ insulin yesterday (20 units basal + 31 units bolus) * Fasting BSG is above goal and current regimen is ~61% bolus insulin, therefore Lantus will be increased. * Severe hyperglycemia with lunch, BSG 405 mg/dL - confirmed with venous draw, 397 mg/dL. Cause of elevation unknown. Patient was well controlled yesterday and does not have snacks in his room. Will tighten correction factor and carb ratio. Add overnight checks. Background: * 56 year old male with PMHx significant for DM, htn, hld - presenting with rectal pain/abscess. Now s/p I&D * Pharmacy consulted to help with glycemic management * Received total of 29 units of insulin yesterday, of which 15 units were basal insulin * Fasting BSG 153 mg/dL - plan to continue with Lantus tonight PLAN FOR INPATIENT GLYCEMIC CONTROL: * Hold outpatient oral diabetes medications * Basal insulin * Lantus 25 units SQ daily * Bolus insulin * NovoLog per scale ACHS or Q6hrs while NPO * Goal Range: Low 110 mg/dL - High 140 mg/dL * Correction Factor: 25 mg/dL/unit * Nutritional / Prandial insulin per carb ratio of 1 unit per 6 grams CHO consumed (1 unit per 7 grams at dinner and HS) PLAN FOR DISCHARGE: * A1c 10.7% * Patient may benefit from addition of basal insulin on discharge. * Add Insulin glargine (Semglee) SQ once daily; recommend starting dose of 20 units * Continue metformin * May consider discontinuing Glyburide * Further recommendations per CDE
--- NOTE | 2021-08-25 13:53 | Discharge Summary ---
Date of Service August 25, 2021 Admission HPI Per Admitting Provider Patient is a 56-year-old male who presents the ER for rectal pain. This been present for the past week and getting worse. He describes it as a 7-10 out of 10. He denies any belly pain nausea vomiting or diarrhea. No dysuria urgency or frequency. He is never had this before. He was seen at the [facility] and referred over for possible abscess. They placed him on antibiotics in the past 24 hours. He denies any other exacerbating or remitting factors other than it is worse with pressure. I ( Primitivo Collins MD ) got a call for consult perirectal abscess, I reviewed pt's H/P, labs, CT scan with pt, Principal Diagnosis Perirectal abscess Discharge Exam Constitutional WD/WN, vitals as above no acute distress and not ill appearing Respiratory normal respiratory effort; no respiratory distress and no labored breathing Gastrointestinal (Abdomen) Right perirectal/gluteal wound with packing and patricio drain present. No surrounding erythema Skin no rashes, warm and dry Psychiatric A+Ox3, euthymic affect Orientation: alert and oriented x 3 Discharge Data Allergies Allergy/AdvReac Type Severity Reaction Status Date / Time mushroom Allergy Unknown Unknown Verified 08/24/21 10:23 Consultations 08/22/21 13:45 Consult General Surgery Stat 08/22/21 18:04 Consult Hospitalist Routine Procedures Performed Operation Date: 08/22/21 17:20 Actual Procedures p Incision and Drainage Rectal Abscess(Not Applicable) - Primitivo Collins MD Ordered Studies 08/22/21 12:02 CT abd pelvis IV con only Stat Diabetes Follow up Diabetes Follow-up Needed for HgbA1c >9% Hospital Course (1) Abscess of anal or rectal region: Patient was taken to operating room for I&D of perirectal abscess. Patient found to have moderate amount of purulence once incision was made. Wound was packed with guaze and patricio drain was also placed and secured to skin. Patient was transferred to medical/surgical floor for postoperative care. He was continued on IV Zosyn , diet as tolerated, PO Percocet and Tylenol prn pain. POD # 1 pain controlled, afebrile, vitals stable. Given amount of purulence, IV Zosyn was continued. POD # 2 afebrile, vitals stable, pain controlled. Patient was expected to be discharged with transition to oral Bactr im for 10 days however afternoon blood sugar was elevated in high 300's. He was kept overnight for glycemic management. Repeat labs in am on POD # 3 showed no leukocytosis and glucose 104. [facility] with PO Bactrim for 10 days and recommendations for better glycemic management by hospitalist team. Total Time Total Time Spent Total Time Spent (In Minutes): 30 Total Time Includes: Examination of the Patient, Discharge Planning, Medication Reconciliation and Communication With Other Providers Discharge Plan Discharge Items [facility] Reason For Visit: BEE-RECTAL ABSCESS Discharge Diagnosis: Bee-rectal abscess Activity: Per Instructions section Non-emergency contact: Surgeon Call non-emergency contact if: you have any medication questions, your pain is worsening, you have a fever, your temperature is above 101, your wound has increased redness, your wound has increased drainage and your wound pain has increased Follow-up/Referrals: [facility] [Primary Care Provider] - Primitivo Collins MD [Physician] - (Follow-up surgical office in 2 weeks for drain removal) Diet: Regular Addtl Attending Provider Instructions: ACTIVITY RECOMMENDATIONS: * No heavy lifting for 1 week. MEDICATIONS: Resume previous medications unless instructed otherwise by your surgeon. * Colace 100 mg 2 times per day * Extra Strength Tylenol 500 - 1000 mg every 4 hours, as needed for pain * Bactrim DS BID for 10 days, finish entire course SPECIAL CARE INSTRUCTIONS: * Change packing every other day with 1/4" plain gauze. * Surgical drain to stay in place until seen in follow-up of surgical office * Change outer dressing daily or as needed to keep clean and dry * Call the surgeon's office with any questions or concerns - (ex. temperature higher than 101 degrees F, excessive bleeding or pain). FOLLOW UP VISIT: If not already scheduled, please call the office to schedule a two week follow- up appointment. Office number . May return to office work on Sunday08/29/2021 Addtl Gas Load Dispatcher Provider Instructions: *Your A1C was found to be high at 10.7. Your diabetes is uncontrolled. You met with a certified breastfeeding educator to discuss treatment options for your diabetes and dietary changes. It is recommended you meet with provider at [facility] and discuss treatment options for diabetes to improve blood sugar control. You will need more frequent blood sugar checks, including in the morning, before all meals and at dinner. A Goal A1C for you is less than 7.0. Good blood sugar/diabetes control is extremely important for wound healing and overall health. Uncontrolled diabetes can lead to heart disease and stroke. Recommendations for Medical Staff at [facility]: Increase frequency of accuchecks to AC/HS. Discontinue glyburide. Start long-acting insulin glargine (Semglee) SQ once daily; recommend starting dose of 20 units. Continue short acting Novolin R with sliding scale as needed for hypeglycemia. HOLD metformin until completion of Bactrim. Recommend repeat a1c in 3 months with goal A1C < 7.0. Repeat BMP in 1 week. Recommend avoid NSAIDS including Ibuprofen, Motrin, Advil, Aleve, and Naproxen while on Bactrim. Pending Studies at Discharge: No Stand-Alone Forms: My [facility] Skilled Items Patient informed of condition?: Yes Discharge Level of Care: Other Communicable Disease: No Discharge Prognosis: Stable Lines: None Urinary Catheter: No Medications and DC Order Prescriptions: New Semglee Pen U-100 Insulin 100 unit/mL (3 mL) insulin pen 20 unit subcut PM Qty: 6 RF: 0 Continued atorvastatin 10 mg Tablet 10 mg PO HS RF: 0 metformin 1,000 mg Tablet 1,000 mg PO BID RF: 0 aspirin 81 mg Tablet,Chewable 81 mg PO DAILY RF: 0 lisinopril 2.5 mg Tablet 2.5 mg PO DAILY RF: 0 Novolin R Flexpen 100 unit/mL (3 mL) Insulin Pen 1 sliding scale dose SUBCUT USEASDIRECTD RF: 0 sulfamethoxazole-trimethoprim 800-160 mg Tablet 1 tab PO BID Qty: 20 RF: 0 Discontinued glyburide 5 mg Tablet 10 mg PO BID RF: 0 ibuprofen 200 mg Tablet 600 mg PO Q6H PRN (Reason: Pain) RF: 0 Discharge Orders: Discharge Order (Routine); Ordered 08/25/21 Ordered By: Mindy Tello/Other Patient Handouts: Diagnosing Hepatitis C Admission Data Admit Date/Time: 08/22/21 16:31 Attending Provider: Primitivo Collins Admit Provider: Primitivo Collins Primary Care Provider: [facility] Other Providers: Primitivo Collins ; Margarita Harding ; Lilliam Reid ; Zully Henry ; Radha Rhodes ; Carmelita Fuentes ; Lynne Flowers ; Stephanie Parnell ; Jose Ramon Bush ; Robert Norris ; David Brink ; Emperatriz Flor ; Anabella Powers ; Jayden Michaud ; Lorelei Murphy ; Ellie Arias ; Ken Decker ; Vesta Sandoval ; Marcella Narayan ; Charli Good ; Lay Zazueta I. ; Lukas Moncada ; Juliette Simmons ; Edgar Farah Other Interventions: Discharge Summary Assessment (RN) Last Done: 08/25/21 14:51
== END 2021-08-25 16:45 | DRG 331 ==
LOC: ED 10:16 → OR 15:46 → 3E 15:46 → PACUINP 16:31 → 3E 20:19